=== PATIENT | male | born 1935 | race Hispanic/Latino ===

== ENCOUNTER 2017-08-31 18:16 | Observation (INO) | payer MEDICARE, MEDICAID ==
[~2017-08-31] VITALS: Ht 165.1 cm; Wt 76.9 kg
[~2017-08-31 18:16] MED LIST: ASPIRIN81 MG PO; CARVEDILOL3.125 MG PO; FUROSEMIDE20 MG PO; GLUCOPHAGE500 MG PO; HYZAAR1 TA1 PO; LEVEMIR100 UNIT/M SC; LEVOTHYROXIN50 MCG PO; LOSARTAN/HCT1 TA1 PO; METFORMIN850 MG PO; NOVOLIN 70/30 SC; NOVOLOG100 IU/1 M; PREVPAC OR; PRIMIDONE50 MG PO; ULTRAM50 M1 PO; XARELTO10 MG PO; ZOCOR20 M1 PO; ZOCOR20 MG OR
--- NOTE | 2017-08-31 18:18 | NUR ---
Pt immediately to room # 13 accompanied by family member.
[2017-08-31 18:57] LABS: HEMATOCRIT 29.2 % (39.0-50.0); HEMOGLOBIN 8.7 g/dl (14.0-18.0); IMMATURE GRANULOCYTES 0.4 % (0.0-1.0); MEAN CORPUSCULAR HGB CONC 29.8 g/L CALC (32.0-36.0); NEUT# 3.75 thou/uL (1.82-7.42); RED BLOOD COUNT 3.35 mill/uL (4.70-6.10); RED CELL DISTRI WIDTH 16.6 % (11.5-15.5)
[2017-08-31 18:59] LABS: MEAN CELL VOLUME 87.2 fL CALC (80.0-100.0)
[2017-08-31 19:05] LABS: ALBUMIN 4.3 g/dL (3.2-5.0); ALKALINE PHOSPHATASE 83 u/l (38-126); ANION GAP 20 (6-22 (CALC)); BILIRUBIN, TOTAL 0.2 mg/dL (0.0-1.4); BUN 42 mg/dL (8-23); BUN/CREATININE RATIO 35 (12-20 (CALC)); CARBON DIOXIDE 27 mmol/l (22-30); CHLORIDE 103 mmol/l (95-108); CREATININE 1.2 mg/dL (0.7-1.3); GFR 58 ML/MIN (>=60 (CALC)); GFR FOR AFR.AMER. > 60 ML/MIN (>=60 (CALC)); POTASSIUM 4.6 mmol/l (3.5-5.1); SGOT/AST 34 u/l (19-48); SGPT/ALT 35 u/l (11-66); SODIUM 145 mmol/l (137-146)
[2017-08-31 19:16] LABS: MYOGLOBIN 58 ng/mL (0 - 121)
[2017-08-31 19:28] LABS: TOTAL PROTEIN 7.4 g/dL (6.3-8.2)
[2017-08-31] MEDS ORDERED: LOSARTAN POT50 MG PO (19:47)
[2017-08-31] MEDS ORDERED: ISOSORB MONO30 MG PO (19:51)
--- NOTE | 2017-08-31 20:01 | NUR ---
PT AND FAMILY UPDATED ON KNOWN RESULTS, AWARE OF PROBABLE ADMISSION. NO DISTRESS NOTED, NO COMPLAINTS OF SOB OR CHEST TIGHTNESS.
[2017-08-31 21:05] VITALS: BP 140/70
--- NOTE | 2017-08-31 21:05 | NUR ---
RECEIVED FROM ER VIA STRETCHER ACCOMPANIED BY ER NURSE, AMBULATING TO STANDING SCALE THEN TO BED WITH STEADY GAIT. A/O X3, TUNISIAN SPEAKING ONLY, RESPIRATIONS EVEN AND UNLABORED. DENIES CHEST PAIN OR SOB AT THIS TIME. ADMITS TO SOB FOR THE PAST THREE WEEK, THAT WORSENED TODAY. O2 SAT 98%. OOB TO BSC, RESULTING IN LARGE BM, SPECIMEN OBTAINED AND SENT TO LAB FOR FOB. ORIENTED TO BED CONTROLS AND CALL LIGHT. WILL CONTINUE TO MONITOR.
--- NOTE | 2017-08-31 21:14 | NUR ---
PT TAKEN TO ICU-4 OVERFLOW, REPORT WAS TO JONO.
--- NOTE | 2017-08-31 22:00 | NUR ---
ACCUCHECK 306, NEW ORDERS RECEIVED FROM DR. FOUNTAIN FOR ACCUCHECK AC/HS WITH HIGH SS AND CONTINUE LEVEMIR 25UNIT AT HS, PT DOES AT HOME.
[2017-09-01] VITALS (7 sets, daily range): BP systolic 111–167; BP diastolic 50–71
--- NOTE | 2017-09-01 02:00 | NUR ---
RESTING WITH EYES CLOSED, RESPIRATIONS EVEN AND UNLABORED.
--- NOTE | 2017-09-01 06:10 | NUR ---
STANDING ON SIDE OF BED WITH MINIMAL ASSISTANCE, VOIDING 300ML CLEAR YELLOW URINE, THEN BACK TO BED. RESPIRATIONS EVEN AND UNLABORED. CALL LIGHT IN REACH.
--- NOTE | 2017-09-01 07:30 | NUR ---
PT ALERT AND ORIENTED RESTING IN BED, SKIN WARM AND DRY AM ASSESSMENT COMPLETED SEE INTERVENTIONS VS STABLE, ABD SOFT, DENIES N/V SKIN WARM DRY AND INTACT, IV ACCESS SALINE LOCKED, ACCU CHECK COMPLETED NO COVERAGE REQUIRED, SAFETY MEASURES REINFORCED, CALL URBANO WITHIN REACH
--- NOTE | 2017-09-01 09:15 | NUR ---
PT TOLERATED AM MEAL WELL AFTER SET UP ASSIST PROVIDED, COMFORT MEASURES PROVIDED, CALL URBANO WITHIN REACH, WILL CONTINUE TO MONITOR
--- NOTE | 2017-09-01 10:30 | NUR ---
PT OOB TO BSC WITH WPOUISE ASSIST, CONTINENT OF B&B, PROVIDED SELF JOSUE CARE, CURRENTLY BACK RESTING IN BED, WITH SPOUSE AT BEDSIDE, OFFERS NO COMPLAINTS AND CONTINUES TO DENY CHEST PAIN
--- NOTE | 2017-09-01 11:08 | NUR ---
PT CONTINENT OF 2 LARGE SOFT/LOOSE BM'S BOTH STOOLS BROWN/JARVIS/ORANGE NO S/S OF GI BLEED NOTED, ABB YEN BS ACTIVE AND PT PROVIDES OWN JOSUE CARE, REMAINS AT BEDSIDE, OTHER FAMILY MEMBERS GONE AT THIS TIME, CALL URBANO WITHIN REACH,
--- NOTE | 2017-09-01 12:05 | NUR ---
SET UP ASSIST PROVIDED FOR AFTERNOON MEAL, COVERAGE GIVEN FOR ACCU CHECK ORDERED, XIOMARA RIVERA INTO SEE PATIENT AND DISCUSS, REASON FOR ADMISSION, PLAN OF CARE ETC. WITH PATIENT AND FAMILY WITH GERMAN ENC[employer] INTREPRETER.
--- NOTE | 2017-09-01 14:15 | NUR ---
pt resting in bed, family members at bedside offers no new complaints, will continue to monitor.
--- NOTE | 2017-09-01 16:13 | NUR ---
family members at bedside, pt tolerating gastrograffin w/o incident, call velasquez within reach, will continue to monitor.
--- NOTE | 2017-09-01 16:35 | NUR ---
completed PO contrast for CT scan, pt tolerated well, family remains at bedside, will continue to monitor. Call velasquez within reach.
--- NOTE | 2017-09-01 17:24 | NUR ---
PT UP TO BSC WITH STAND BY ASSIST, REPORT CALLED TO ELIZABETH ENCINAS ON MED SURG ROOM 290 ASSIGNED
--- NOTE | 2017-09-01 18:15 | NUR ---
PT STOOD AND AMBULATED TO WHEELCHAIR, TO CT VIA WC.
--- NOTE | 2017-09-01 18:25 | NUR ---
PT TRANSFERRED TO MED SURG AFTER CT COMPLETED, PT TOLERATED WELL, ALL BELONGINGS SENT TO PATIENT NEW ROOM ON MED SURG, CALL URBANO WITHIN REACH. FAMILY AT BEDSIDE.
--- NOTE | 2017-09-01 18:30 | NUR ---
PT ARRIVED TO FLOOR VIA WC IN STABLE CONDITION ACCOMPANIED BE GANGA PETERS AND FAMILY;PT AMBULATED WITH A STEADY GAIT TO BEDSIDE;VS OBTAINED BY ERASMO ROGERS;PT ORIENTED TO ROOM AND CALL LIGHT SYSTEM;RESPIRATIONS EVEN AND UNLABORED ON RA;PT DENIES ANY CURRENT NEEDS OR DISCOMFORTS;ENCOURAGED TO CALL FOR ASSISTANCE IF NEEDED;BED IN THE LOWEST POSITION WITH CALL LIGHT IN REACH;WILL CONTINUE TO MONITOR
--- NOTE | 2017-09-01 19:07 | NUR ---
PT.IS IN RESTROOM AT THIS TIME. FAMILY AT BEDSIDE X5. BEDSIDE REPORT RECEIVED FROM DAY NURSE. WILL F/U WITH COMPLETE ASSESSMENT AND MEDICATIONS ORDERED.
--- NOTE | 2017-09-01 19:59 | NUR ---
I SPOKE W/ REGARDING POC AND RELAYED POC TO PT AND FAMILY. PT.REPORTS WANTING TO SEE OF [facility] FOR FURTHER GASTROINTESTINAL TESTING. PT.DENIES ANY FURTHER QUESTIONS AT THIS TIME. PT.DENIES ANY PAIN, BUT REPORTS THAT HE IS STILL HAVING DIAHREA FROM CONTRAST AND HE IS TRYING TO DRINK PLENTY OF WATER. LUNG SOUNDS ARE CLEAR. PT.DENIES ANY FURTHER ASSISTANCE NEEDED AT THIS TIME, LEFT SITTING ON SIDE OF THE BED W/TV AND LIGHTS ON, FAMILY AT BEDSIDE X3. PT.ENCOURAGED TO CALL IF ANY NEEDS ARISE. CALL LIGHT AT BEDSIDE.
--- NOTE | 2017-09-01 22:14 | NUR ---
PT.MEDICATED ORDERS PROVIDE AND FOR BS 160. PT.WAS ASLEEP I ENTERED THE ROOM, BUT AWOKE TO MY VOICE. LIGHTS ARE OFF AND TV ON LOW. NO S/S OF DISTRESS, NO MORE FAMILY IN ROOM. PT.DENIES ANY PAIN/N/V AT THIS TIME. WILL CONTINUE TO MONITOR. CALL LIGHT AT BEDSIDE AND PT.ENCOURAGED TO CALL FOR ASSISTANCE NEEDED
[2017-09-02 00:45] VITALS: BP 135/64
--- NOTE | 2017-09-02 01:22 | NUR ---
PT.IV FLUIDS CHANGED TO NS@125/HR AND PT.MEDICATED FOR SLEEP. DENIES ANY OTHER NEEDS AT THIS TIME. PT.HAS BEEN INSTRUCTED TO CALL FOR ASSISTANCE AMBULATING TO RESTROOM FOR SAFETY DUE TO REPORTS OF WEAKNESS. CALL LIGHT IS AT SIDE.
--- NOTE | 2017-09-02 03:15 | NUR ---
PT.APPEARS TO BE SLEEPING AT THIS TIME. LIGHTS AND TV ARE OFF. NO S/S OF DISTRESS, CALL LIGHT AT SIDE.
--- NOTE | 2017-09-02 04:47 | NUR ---
LAB IS IN TO SEE PT.AT THIS TIME. NO DISTRESS REPORTED AT THIS TIME. PT.REMINDED OF CALL LIGHT AND CALLING FOR ASSISTANCE NEEDED.
[2017-09-02 04:50] VITALS: BP 128/60
[2017-09-02 05:15] LABS: HEMOGLOBIN 8.4 g/dl (14.0-18.0); IMMATURE GRANULOCYTES 0.1 % (0.0-1.0); MEAN CELL VOLUME 86.4 fL CALC (80.0-100.0); MEAN CORPUSCULAR HGB 25.9 pG CALC (26.0-32.0); NEUT# 3.79 thou/uL (1.82-7.42); RED BLOOD COUNT 3.24 mill/uL (4.70-6.10); RED CELL DISTRI WIDTH 16.3 % (11.5-15.5)
[2017-09-02 05:31] LABS: ALBUMIN 3.6 g/dL (3.2-5.0); ALKALINE PHOSPHATASE 80 u/l (38-126); ANION GAP 16 (6-22 (CALC)); BILIRUBIN, TOTAL 0.3 mg/dL (0.0-1.4); BUN 25 mg/dL (8-23); BUN/CREATININE RATIO 30 (12-20 (CALC)); CARBON DIOXIDE 27 mmol/l (22-30); CHLORIDE 105 mmol/l (95-108); CREATININE 0.9 mg/dL (0.7-1.3); GFR > 60 ML/MIN (>=60 (CALC)); GFR FOR AFR.AMER. > 60 ML/MIN (>=60 (CALC)); POTASSIUM 4.3 mmol/l (3.5-5.1); SGOT/AST 28 u/l (19-48); SGPT/ALT 35 u/l (11-66); SODIUM 144 mmol/l (137-146); TOTAL PROTEIN 6.3 g/dL (6.3-8.2)
--- NOTE | 2017-09-02 07:25 | NUR ---
REPORT RECEIVED FROM GANGA MUSTAFA;PT APPEARS TO BE SLEEPING IN LEFT SIDE LAYING POSITION;NO S/S OF DISTRESS NOTED;RESPIRATIONS APPEAR EVEN AND UNLABORED ON RA;TELE MONITOR IN PLACE;BED IN THE LOWEST POSITION WITH CALL LIGHT IN REACH;WILL CONTINUE TO MONITOR
[2017-09-02 09:10] VITALS: BP 126/59
--- NOTE | 2017-09-02 09:15 | NUR ---
PT OOB RESTING IN RECLINER WITH FAMILY AT BEDSIDE;PT A&O X4;VS OBTAINED AND ASSESSMENT COMPLETED;RESPIRATIONS EVEN AND UNLABORED ON RA;ABDOMEN DISTENED/SOFT ON PALPATION AND ACTIVE IN ALL 4 QUADRANTS;TELE MONITOR IN PLACE;PT DENIES ANY MORE LOOSE BMS;SKIN INTACT;ALL QUESTIONS ANSWERED;ENCOURAGED TO CALL FOR ASSISTANCE IF NEEDED;CALL LIGHT IN REACH;WILL CONTINUE TO MONITOR
[2017-09-02 11:00] VITALS: BP 136/59
--- NOTE | 2017-09-02 11:06 | NUR ---
ACCU CHECK (CR HI) NURSE INFORMED.
--- NOTE | 2017-09-02 11:30 | NUR ---
PT RESTING IN RECLINER WITH FAMILY AT BEDSIDE;RESPIRATIONS EVEN AND UNLABORED ON RA;TELE MONITOR IN PLACE;IV SITE PATENT;PT DENIES ANY CURRENT NEEDS;CALL LIGHT IN REACH;WILL CONTINUE TO MONITOR
--- NOTE | 2017-09-02 12:30 | NUR ---
ALL DISCHARGE INSTRUCTIONS DISCUSSED AND PRESCRITIONS GIVEN TO THE PATIENT;DENIES ANY FURTHER NEEDS;IV SITE REMOVED WITH CATHETER INTACT;PT REFUSES WHEELCHAIR AT THIS TIME.
--- NOTE | 2017-09-02 12:40 | NUR ---
Discharge instructions given. Patient verbalizes understanding of same. Discharged in stable condition via Ambulatory to Home with family. All belongings sent with pt.
== END 2017-09-02 12:41 | disposition home or self-care (01) ==
LOC: ED 18:16 → ED-I 19:48 → ED 20:42 → ICU 20:43 → MS2 09-01 18:29
PROVIDERS: Emergency Medicine; ADMIT Internal Medicine; ATTEND Internal Medicine
DX: K56.7 Ileus, unspecified (principal); E11.9 Type 2 diabetes mellitus without complications; D50.9 Iron deficiency anemia, unspecified; I10 Essential (primary) hypertension; I25.10 Atherosclerotic heart disease of native coronary artery without angina pectoris; E78.5 Hyperlipidemia, unspecified; E03.9 Hypothyroidism, unspecified; R19.5 Other fecal abnormalities; K64.9 Unspecified hemorrhoids; Z95.1 Presence of aortocoronary bypass graft; Z95.0 Presence of cardiac pacemaker; R07.9 Chest pain, unspecified; R06.02 Shortness of breath
CPT/HCPCS: G0328

== ENCOUNTER 2019-01-04 18:36 | Emergency (ER) | payer MEDICARE, MEDICAID ==
[~2019-01-04] VITALS: Ht 165.1 cm; Wt 77.3 kg
[~2019-01-04 18:36] MED LIST changes: +ISOSORB MONO30 MG PO; +LOSARTAN POT50 MG PO
[2019-01-04 19:11] LABS: HEMATOCRIT 34.4 % (39.0-50.0); HEMOGLOBIN 10.5 g/dl (14.0-18.0); IMMATURE GRANULOCYTES 0.2 % (0.0-5.0); MEAN CELL VOLUME 92.2 fL CALC (80.0-100.0); MEAN CORPUSCULAR HGB 28.2 pG CALC (26.0-32.0); MEAN CORPUSCULAR HGB CONC 30.5 g/L CALC (32.0-36.0); NEUT# 6.15 thou/uL (1.82-7.42); RED BLOOD COUNT 3.73 mill/uL (4.70-6.10); RED CELL DISTRI WIDTH 15.1 % (11.5-15.5)
[2019-01-04 19:24] LABS: ALBUMIN 4.3 g/dL (3.2-5.0); ALKALINE PHOSPHATASE 84 u/l (38-126); ANION GAP 12 (6-22 (CALC)); BILIRUBIN, TOTAL 0.4 mg/dL (0.0-1.4); BUN 39 mg/dL (8-23); BUN/CREATININE RATIO 33 (12-20 (CALC)); CARBON DIOXIDE 30 mmol/l (22-30); CHLORIDE 101 mmol/l (95-108); CREATININE 1.2 mg/dL (0.7-1.3); GFR 58 ML/MIN (>=60 (CALC)); GFR FOR AFR.AMER. > 60 ML/MIN (>=60 (CALC)); POTASSIUM 4.6 mmol/l (3.5-5.1); SGOT/AST 26 u/l (19-48); SODIUM 138 mmol/l (137-146); TOTAL PROTEIN 7.1 g/dL (6.3-8.2)
--- NOTE | 2019-01-04 19:32 | NUR ---
BREATHING TREATMENT GIVEN BACK TO BACK WITH ONE DUONEB AND 2 UD ALBUTEROL. BREATHING TECH. FOR GOOD DEPOSITION TO THE LUNGS.
[2019-01-04] MEDS ORDERED: PREDNISONE50 MG PO (19:57)
[2019-01-04] MEDS ORDERED: VENTOLIN HFA IN (19:57)
[2019-01-04 20:25] VITALS: BP 140/61
== END 2019-01-04 20:37 | disposition home or self-care (01) ==
LOC: ED 18:36
PROVIDERS: Family Medicine
DX: J20.8 Acute bronchitis due to other specified organisms (principal); R50.9 Fever, unspecified; R09.81 Nasal congestion; R05 Cough; Z95.0 Presence of cardiac pacemaker

== ENCOUNTER 2019-02-23 15:15 | Inpatient (IN) | payer MEDICARE, MEDICAID ==
[~2019-02-23] VITALS: Ht 165.1 cm; Wt 74.0 kg
[~2019-02-23 15:15] MED LIST changes: +PREDNISONE50 MG PO; +VENTOLIN HFA IN
--- NOTE | 2019-02-23 15:35 | NUR ---
PT TO ROOM PER W/C
--- NOTE | 2019-02-23 15:45 | NUR ---
PATIENT BEING SOB FOR THE PAST FEW DAYS, HAS BEEN SLEEPING IN RECLINER AT HOME. WHEEZING NOTED TO BILATERAL LUNGS, REPORTS PRODUCTIVE COUGH AND CHEST PRESSURE. ABG AND BLOOD WORK DRAWN. RT AT BE BEDSIDE FOR NEB TREATMENT.
[2019-02-23 15:51] LABS: HEMATOCRIT 32.3 % (39.0-50.0); HEMOGLOBIN 9.8 g/dl (14.0-18.0); IMMATURE GRANULOCYTES 0.4 % (0.0-5.0); MEAN CELL VOLUME 87.3 fL CALC (80.0-100.0); MEAN CORPUSCULAR HGB 26.5 pG CALC (26.0-32.0); MEAN CORPUSCULAR HGB CONC 30.3 g/L CALC (32.0-36.0); NEUT# 6.73 thou/uL (1.82-7.42); RED BLOOD COUNT 3.7 mill/uL (4.70-6.10); RED CELL DISTRI WIDTH 16.1 % (11.5-15.5)
[2019-02-23] MEDS ORDERED: Levaquin PO (16:29)
[2019-02-23] MEDS ORDERED: LORATADINE10 M1 PO (16:30)
[2019-02-23] MEDS ORDERED: TRESIBA FL100 UNIT/M SC (16:37)
--- NOTE | 2019-02-23 16:40 | NUR ---
MEDREC COMPLETED WITH PATIENT AND FAMILY.
[2019-02-23 16:44] LABS: ALBUMIN 4.5 g/dL (3.2-5.0); ALKALINE PHOSPHATASE 92 u/l (38-126); ANION GAP 21 (6-22 (CALC)); BILIRUBIN, TOTAL 0.3 mg/dL (0.0-1.4); BUN 41 mg/dL (8-23); BUN/CREATININE RATIO 33 (12-20 (CALC)); CARBON DIOXIDE 25 mmol/l (22-30); CHLORIDE 97 mmol/l (95-108); CREATININE 1.2 mg/dL (0.7-1.3); GFR 58 ML/MIN (>=60 (CALC)); GFR FOR AFR.AMER. > 60 ML/MIN (>=60 (CALC)); SGOT/AST 34 u/l (19-48); SODIUM 138 mmol/l (137-146); TOTAL PROTEIN 7.3 g/dL (6.3-8.2)
[2019-02-23 16:55] LABS: MYOGLOBIN 98 ng/mL (0 - 121)
--- NOTE | 2019-02-23 17:00 | NUR ---
EXPIRATORY WHEEZING NOTED TO BILATERAL LUNGS, INFORMED.
--- NOTE | 2019-02-23 17:10 | NUR ---
AT BEDSIDE. ADDITIONAL BREATHING TREATMENT ORDERED.
--- NOTE | 2019-02-23 17:45 | NUR ---
ATTEMPT MADE TO CALL REPORT, SPOKE TO GANGA DOLAN. WILL CALL BACK FOR REPORT.
--- NOTE | 2019-02-23 18:10 | NUR ---
REPORT GIVEN TO HUANG STRINGER.
--- NOTE | 2019-02-23 18:19 | NUR ---
PATIENT TRANSPORTED TO [facility] VIA WHEELCHAIR WITH O2 AND TELE IN PLACE.HUANG STRINGER AT BEDSIDE. CARE RELINQUISHED. HOME MEDS SENT HOME WITH FAMILY.
--- NOTE | 2019-02-23 18:20 | NUR ---
PT ARRIVED TO MS2 VIA WHEELCHAIR ACCOMPANIED BY ER NURSE AND FAMILY. PT ALERT AND ORIENTED X3, STOOD UP WITHOUT DIFFICULTY AND AMBULATED TO BED WITH STEADY GAIT, PT SOB ON EXERTION, [address], AUDIBLE WHEEZES HEARD. ORIENTED PT TO ROOM AND CALL LIGHT, WT OBTAINED VIA BEDSCALE, VITALS OBTAINED, ACCUCHECK 373 NOTIFIED MD LAWYER CRIMINAL, ORDERS FOR PT TO TAKE HIS HOME MED TRISIBA, FAMILY TO BRING IN MEDICATION FROM HOME. CALL LIGHT IN REACH,CONTINUE TO MONITOR.
[2019-02-23 18:31] VITALS: BP 173/71
[2019-02-23 19:18] LABS: URINE BILIRUBIN - DIPSTICK NEGATIVE (NEGATIVE); URINE BLOOD DIPSTICK TRACE-INTACT (NEGATIVE); URINE COLOR YELLOW; URINE GLUCOSE - DIPSTICK >=1000 mg/dL (NEGATIVE); URINE KETONE NEGATIVE (NEGATIVE); URINE LEUK ESTERASE NEGATIVE (NEGATIVE); URINE NITRITE - DIPSTICK NEGATIVE (Negative); URINE PROTEIN - DIPSTICK 100 mg/dL (NEG-TRACE); URINE UROBILINOGEN - DIPSTICK 0.2 E.U./dL (0.2)
--- NOTE | 2019-02-23 19:20 | NUR ---
ADMISSION ASSESSMENT COMPLETED. FAMILY IN AT BEDSIDE ALL PMH OBTAINTED FROM DAUGHTERBC. UPDATED FAMILY AND PT. ON POC AND VERBALIZES UNDERSTANDING. TELEMETRY IN PLACE. EDUCATED ON INCENTIVE SPIROMETER AND PT. ABLE TO PULL 750 AT THIS TIME AND GOAL SET TO 1000.O2 INFUSING PER NC PER ORDER. ENCOURAGED TO CALL FOR ANY NEEDS. CALL LIGHT IS IN REACH.
[2019-02-23 19:29] LABS: URINE SQUAMOUS EPITHELIAL CELL FEW EPI/hpf (0-FEW)
--- NOTE | 2019-02-23 20:00 | NUR ---
SPOKE WITH DR. CHAPPELL AND NOTIFIED OF HTN AND OF ABT'S ORDERED TO START TOMORROW ALSO THAT THERE WAS NOT ANY BLOOD CULTURES ORDERED; WELL PRODUCTIVE COUGH; NEW ORDERS RECEIVED AND TO BE CARRIED OUT.
[2019-02-23 21:03] VITALS: BP 140/50; BP 140/55; BP 144/50
--- NOTE | 2019-02-23 21:03 | NUR ---
REASSESSED B/P 140/55 AND EDUCATED ON NEW MEDICATIONS; GIVEN AT THIS TIME. DENIES NEEDS. CALL LIGHT IS IN REACH. WILL CONTINUE TO MONITOR.
[2019-02-23 23:29] VITALS: BP 120/61
--- NOTE | 2019-02-23 23:30 | NUR ---
SCHED SOLU-MEDROL GIVEN. VSS. URINAL EMPTIED. DENIES NEEDS. REMAINS AT BEDSIDE STAYING THE NIGHT. CALL LIGHT IS IN REACH. WILL CONTINUE TO MONITOR.
[2019-02-24] VITALS (7 sets, daily range): BP systolic 104–166; BP diastolic 50–77
--- NOTE | 2019-02-24 03:38 | NUR ---
VS OBTAINED AND B/P ELEVATED 166/68 AND MEDICATED WITH ORDERED CLONIDINE; WILL REASSESS. PT. IS CLAMMY AND BS OBTAINED AND IS 257. URINAL EMPTIED. AT BEDSIDE. PT. DENIES NEEDS. CALL LIGHT IS IN REACH.
[2019-02-24 04:41] LABS: HEMOGLOBIN 8.9 g/dl (14.0-18.0); MEAN CELL VOLUME 87.6 fL CALC (80.0-100.0); MEAN CORPUSCULAR HGB 26.9 pG CALC (26.0-32.0); MEAN CORPUSCULAR HGB CONC 30.7 g/L CALC (32.0-36.0); RED BLOOD COUNT 3.31 mill/uL (4.70-6.10); RED CELL DISTRI WIDTH 16.1 % (11.5-15.5)
[2019-02-24 05:08] LABS: ALBUMIN 3.9 g/dL (3.2-5.0); ALKALINE PHOSPHATASE 92 u/l (38-126); ANION GAP 15 (6-22 (CALC)); BILIRUBIN, TOTAL 0.2 mg/dL (0.0-1.4); BUN 37 mg/dL (8-23); BUN/CREATININE RATIO 36 (12-20 (CALC)); CARBON DIOXIDE 26 mmol/l (22-30); CHLORIDE 102 mmol/l (95-108); GFR > 60 ML/MIN (>=60 (CALC)); GFR FOR AFR.AMER. > 60 ML/MIN (>=60 (CALC)); POTASSIUM 4.9 mmol/l (3.5-5.1); SGOT/AST 48 u/l (19-48); SODIUM 138 mmol/l (137-146); TOTAL PROTEIN 6.5 g/dL (6.3-8.2)
--- NOTE | 2019-02-24 05:15 | NUR ---
REASSESSED B/P NOW 104/50. DENIES NEEDS.SCHED MEDS GIVEN. CALL LIGHT IS IN REACH.
--- NOTE | 2019-02-24 06:30 | NUR ---
RESTING IN BED WITH EYES CLOSED; RESP. EVEN AND UNLABORED.
--- NOTE | 2019-02-24 08:16 | NUR ---
PT IS SITTING IN RECLINER . IN ROOM. ASSESSMENT DONE. TELE IN PLACE. PT DENIES PAIN. PT STATED HE GETS SOB WHEN HE MOVES. LUNGS SOUND COARSE. O2 AT 2L VIA NC. PT HAS TREMORS. PT DENIES ANY OTHER NEEDS AT THIS TIME. SAFETY PRECAUTIONS REINFORCED AND CALL LIGHT IN REACH. NOTIFIED CLAUDE YANEZ RE: PT SOB
--- NOTE | 2019-02-24 12:00 | NUR ---
PT IS SITTING IN RECLINER VISITING WITH FAMILY IN ROOM. PT DENIES ANY NEEDS AT THIS TIME. CALL LIGHT IN REACH.
--- NOTE | 2019-02-24 16:04 | NUR ---
PT IS RESTING IN BED WITH NO S/S OF DISTRESS NOTED. PT STATED THAT THE BREATHING TREATMENTS HAVE HELPED WITH HIS SOB. FAMILY IN ROOM. PT DENIES PAIN. CALL LIGHT IN REACH.
--- NOTE | 2019-02-24 16:54 | NUR ---
GANGA AT BEDSIDE.
--- NOTE | 2019-02-24 19:43 | NUR ---
PT SITTIN IN RECLINER W/FAMILY AT BEDSIDE X3. PT DENIES ANY NEEDS AT THIS TIME. REPORT RECEIVED FROM DAY NURSE WHO INTERPRETED AT THIS TIME. FAMILY SPEAKS TAJIK ALSO.
--- NOTE | 2019-02-24 20:15 | NUR ---
PT SITTING IN RECLINER W/VISITORS X3 AT BEDSIDE. WATER PROVIDED TO VISITOR AT THIS TIME. PT DENIES ANY NEEDS, ENCOURAGED TO USE CALL LIGHT IF ANY NEEDS ARISE.
--- NOTE | 2019-02-24 21:18 | NUR ---
VISITORS JUST LEFT, PT ON CELL PHONE. WILL RETURN TO MEDICATE AND ASSESS. AT BEDSIDE.
--- NOTE | 2019-02-24 21:40 | NUR ---
PT ASSISTED TO RESTROOM AND BACK TO BED. PT ASSESSED AT THIS TIME. LUNG SOUNDS ARE WHEEZING UPPER/CLEAR LOWER LOBES. ABD NON-TENDER, PT WAS ABLE TO FOLLOW DIRECTIONS AND ANSWER QUESTIONS THROUGHOUT ASSESSMENT. NEURO'S INTACT. MEDICATIONS DISCUSSED, PT ASKED QUESTIONS OF DOSAGES, BLOOD SUGAR RESULT, TYPES OF INSULIN, HE ASKED ABOUT TWO THAT HE WILL NOT BE GETTING TONIGHT, BUT TOMORROW. AFTER ALL OF THIS BEING DISCUSSED PT WAS ASKED IF HE UNDERSTOOD OR IF HE FELT HE NEEDED AN INTERPRETOR, PT DENIED NEED FOR CARBON BRUSHES ASSEMBLER AND STATED "I UNDERSTAND." PT MEDICATED AT THIS TIME. PROVIDED BEDDING NEEDED. PT ASSISTED PLACING URINAL NEXT TO BED W/IN REACH AND CALL LIGHT USAGE REVIEWED. ENCOURAGED TO CALL ANY NEEDS ARISE.
--- NOTE | 2019-02-24 23:52 | NUR ---
PT MEDICATED ORDERS PRVOIDE. PT WAS SLEEPING I ENTERED THE ROOM. ASLEEP AT BEDSIDE. PT DENIES ANY OTHER NEEDS. AIDE ENTERING ROOM TO OBTAIN V/S/
[2019-02-25 04:51] VITALS: BP 146/69
--- NOTE | 2019-02-25 05:00 | NUR ---
PT MEDICATED ORDERS PROVIDE. PT DENIES ANY OTHER NEEDS. URINAL EMPTIED OF 400CC CLEAR YELLOW URINE AT THIS TIME.
[2019-02-25 07:30] VITALS: BP 153/71
[2019-02-25 07:44] LABS: HEMATOCRIT 29.8 % (39.0-50.0); MEAN CELL VOLUME 87.9 fL CALC (80.0-100.0); MEAN CORPUSCULAR HGB 26.5 pG CALC (26.0-32.0); MEAN CORPUSCULAR HGB CONC 30.2 g/L CALC (32.0-36.0); RED BLOOD COUNT 3.39 mill/uL (4.70-6.10); RED CELL DISTRI WIDTH 16.2 % (11.5-15.5)
--- NOTE | 2019-02-25 08:00 | NUR ---
PT IS SITTING IN THE SIDE OF THE BED. ASSESSMENT DONE. TELE IN PLACE. PT IS A&O X3. 02 AT 2L VIA [place]. PT DENIES PAIN AT THIS TIME. LUNGS SOUND/WHEEZES. IN ROOM. PT HAS TREMORS. PT DENIES ANY NEEDS AT THIS TIME. CALL LIGHT IN REACH.
[2019-02-25 08:03] LABS: ANION GAP 16 (6-22 (CALC)); BUN 43 mg/dL (8-23); BUN/CREATININE RATIO 38 (12-20 (CALC)); CARBON DIOXIDE 26 mmol/l (22-30); CHLORIDE 103 mmol/l (95-108); CREATININE 1.1 mg/dL (0.7-1.3); GFR > 60 ML/MIN (>=60 (CALC)); GFR FOR AFR.AMER. > 60 ML/MIN (>=60 (CALC)); POTASSIUM 5.4 mmol/l (3.5-5.1); SODIUM 140 mmol/l (137-146)
--- NOTE | 2019-02-25 11:30 | NUR ---
PT WAS IN THE BATHROOM AND RETURN TO BED . HE STATED HE FELT SOB AND RIGHT SIDE ABD PAIN. 02 APPLIED AT 2L VIA NC. CHECK PT P-62, AND O2 100%. TELE IN PLACE. PT REFUSED PAIN MEDICATION AT THIS TIME. PT DENIES ANY OTHER NEEDS AT THIS TIME. DAUGHTER IN ROOM. CALL LIGHT IN REACH.
[2019-02-25 11:55] VITALS: BP 161/68
--- NOTE | 2019-02-25 13:00 | NUR ---
PT IS SLEEPING IN BED WITH NO S/S OF DISTRESS NOTED. DAUGHTER IN ROOM. CALL LIGHT IN REACH.
[2019-02-25 15:25] VITALS: BP 156/77
--- NOTE | 2019-02-25 16:15 | NUR ---
PT VISITING IN ROOM WITH FAMILY. PT DENIES NEEDS AT THIS TIME. CALL LIGHT IN REACH.
[2019-02-25 19:20] VITALS: BP 162/69
--- NOTE | 2019-02-25 20:43 | NUR ---
PT ACCU-CHECK REPORTED BY AIDE TO BE 416, STAT GLUCOSE WAS ORDERED AND CALL TO LAB WAS PLACED. PT REPORTS FEELING SYMPTOMATIC W/FEELING OF HOT TO COLD. DENIES ANY OTHER SYMPTOMS AT THIS TIME. FAMILY X2 AT BEDSIDE.
--- NOTE | 2019-02-25 22:00 | NUR ---
PT BS VIA ACCU-CHECK @416. STAT BLOOD GLUCOSE ORDERED AND ORDERS ADMINISTERED PER PROTOCOL AND ORDERS PROVIDE. BLOOD GLUCOSE 394 AT THIS TIME. PT WAS FEELING "HOT/COLD," BUT REPORTS FEELING BETTER AT THIS TIME.
[2019-02-25 23:48] VITALS: BP 131/54
--- NOTE | 2019-02-25 23:52 | NUR ---
PT MEDICATED ORDERS PROVIDE. LUNG SOUND EXPIRATORY WHEEZING AUSCULTATED THROUGHOUT. NO NOTED EDEMA AT THIS TIME. PT REPORTS FEELING BETTER THAN PREVIOUS NIGHT. ASLEEP AT BEDSIDE. CALL LIGHT AT SIDE AND PT ENCOURAGED TO CALL NEEDS ARISE.
--- NOTE | 2019-02-26 03:54 | NUR ---
PT SLEEPING AT THIS TIME. ASLEEP AT BEDSIDE. NO S/O DISTRESS NOTED. CALL LIGHT AT SIDE.
[2019-02-26 05:03] LABS: HEMATOCRIT 29.5 % (39.0-50.0); HEMOGLOBIN 9.1 g/dl (14.0-18.0); IMMATURE GRANULOCYTES 0.6 % (0.0-5.0); MEAN CORPUSCULAR HGB 26.8 pG CALC (26.0-32.0); MEAN CORPUSCULAR HGB CONC 30.8 g/L CALC (32.0-36.0); NEUT# 8.27 thou/uL (1.82-7.42); RED BLOOD COUNT 3.39 mill/uL (4.70-6.10); RED CELL DISTRI WIDTH 16.2 % (11.5-15.5)
[2019-02-26 05:17] VITALS: BP 162/81
[2019-02-26 05:17] LABS: ANION GAP 14 (6-22 (CALC)); BUN 42 mg/dL (8-23); BUN/CREATININE RATIO 35 (12-20 (CALC)); CARBON DIOXIDE 28 mmol/l (22-30); CHLORIDE 103 mmol/l (95-108); CREATININE 1.2 mg/dL (0.7-1.3); GFR 58 ML/MIN (>=60 (CALC)); GFR FOR AFR.AMER. > 60 ML/MIN (>=60 (CALC)); MAGNESIUM 2.3 mg/dL (1.6-2.3); POTASSIUM 5.1 mmol/l (3.5-5.1); SODIUM 139 mmol/l (137-146)
--- NOTE | 2019-02-26 05:55 | NUR ---
PT MEDICATED ORDERS PROVIDE AND FOR ELEVATED SBP 162/82. 400CC OF CLEAR YELLOW URINE EMPTIED FROM URINAL. PT ASSISTED BACK INTO THE BED/REPOSITIONED. PT D.WEIGHT ASSESSED AT THIS TIME. CALL LIGHT AT SIDE AND PT ENCOURAGED TO CALL NEEDS ARISE.
--- NOTE | 2019-02-26 07:10 | NUR ---
REPORT RECEIVED FROM GANGA MUSTAFA. PT RESTING IN BED. NO S/S OF DISTRESS AT TIS TIME. SAFETY PRECAUTIONS IN PLACE. WILL CONTINUE TO MONITOR.
[2019-02-26 08:44] VITALS: BP 155/74
--- NOTE | 2019-02-26 08:45 | NUR ---
PT RESTING IN BED. RESPIRATIONS EVEN AND UNLABIORED ON O2 @ 2L VIA NC. WHEEZES NOTED THROUGH OUT LUNGS. PEDAL PULSES STRONG. PT DENIES ANY PAIN OR DISCOMFORT AT THIS TIME. TELE IN PLACE. #20 LAC, PATENT AND APPEARS HEALTHY. CALL URBANO WITHIN REACH. WILL CONTINUE TO MONITOR.
--- NOTE | 2019-02-26 10:51 | NUR ---
MD AT BEDSIDE DISCUSSING PLAN OF CARE
[2019-02-26 11:14] VITALS: BP 135/58
--- NOTE | 2019-02-26 12:20 | NUR ---
NEW ORDERS RECEIVED TO REMOVE 02 AND MONITOR PT O2 SATS. O2 REMOVED PT SAT ON RA 98%. WILL CONTINUE TO MONITOR.
[2019-02-26 15:50] VITALS: BP 143/63
--- NOTE | 2019-02-26 17:00 | NUR ---
PT RESTING IN BED. RESPIRATIONS EVEN AND UNLABORED ON RA. NO S/S OF DISTRESS AT THIS TIME. WILL CONTINUE TO MONITOR.
[2019-02-26 19:00] VITALS: BP 132/59
--- NOTE | 2019-02-26 19:30 | NUR ---
ASSESSMENT COMPLETED. IV SITE PATENT AND SL. DENIES NEEDS/PAIN. UPDATED ON POC. AT BEDSIDE. CALL LIGHT IS IN REACH. ENCOURAGED TO USE INCENTIVE SPIROMETER.
--- NOTE | 2019-02-26 20:52 | NUR ---
SCHED MEDS GIVEN. DENIES NEEDS/PAIN. PO FLUIDS OFFERED AND SNACK PROVIDED. FAMILY AT BEDSIDE. CALL LIGHT IS IN REACH.
[2019-02-26 23:22] VITALS: BP 146/73
--- NOTE | 2019-02-26 23:24 | NUR ---
SCHED MEDS GIVEN. DENIES NEEDS/ PAIN. VSS;URINAL EMPTIED. CALL LIGHT IS IN REACH. AT BEDSIDE. WILL CONTINUE TO MONITOR.
--- NOTE | 2019-02-27 01:55 | NUR ---
PT. SITTING UP ON THE SIDE OF THE BED WITH NO DISTRESS NOTED; C/O DRY COUGH, GIVEN WARM TEA AT THIS TIME. REMAINS AT BEDSIDE. CALL LIGHT IS IN REACH.
[2019-02-27 04:17] VITALS: BP 150/68
--- NOTE | 2019-02-27 04:19 | NUR ---
RESTING IN BED WITH NO DISTRESS NOTED; VSS; AT BEDSIDE. DENIES NEEDS. CALL LIGHT IS IN REACH.
[2019-02-27 04:58] LABS: HEMOGLOBIN 9.3 g/dl (14.0-18.0); IMMATURE GRANULOCYTES 1.1 % (0.0-5.0); MEAN CELL VOLUME 86.2 fL CALC (80.0-100.0); MEAN CORPUSCULAR HGB 26.7 pG CALC (26.0-32.0); NEUT# 7.69 thou/uL (1.82-7.42); RED BLOOD COUNT 3.48 mill/uL (4.70-6.10); RED CELL DISTRI WIDTH 16.2 % (11.5-15.5)
[2019-02-27 05:21] LABS: ANION GAP 16 (6-22 (CALC)); BUN 37 mg/dL (8-23); BUN/CREATININE RATIO 32 (12-20 (CALC)); CARBON DIOXIDE 27 mmol/l (22-30); CHLORIDE 102 mmol/l (95-108); CREATININE 1.1 mg/dL (0.7-1.3); GFR > 60 ML/MIN (>=60 (CALC)); GFR FOR AFR.AMER. > 60 ML/MIN (>=60 (CALC)); POTASSIUM 4.9 mmol/l (3.5-5.1); SODIUM 139 mmol/l (137-146)
--- NOTE | 2019-02-27 05:36 | NUR ---
PT. DENIES NEEDS/PAIN. SPO2 WNL ON RA THROUGHOUT THE NIGHT. SCHED MEDS GIVEN AND COFFEE PROVIDED. CALL LIGHT IS IN REACH. WILL CONTINUE TO MONITOR.
--- NOTE | 2019-02-27 06:45 | NUR ---
REPORT RECEIVED. PT RESTING IN BED. RESP ARE EVEN AND UNLABORED. WILL CONTINUE TO MONITOR,.
[2019-02-27 08:30] VITALS: BP 159/78
--- NOTE | 2019-02-27 08:30 | NUR ---
PT RESTING IN BED AWAKE FAMILY AT BEDSIDE. PT IS ALERT AND ORIENTED X3. SHIFT ASSESSMENT COMPLETED AT THIS TIME. IV PATENT X1. CALL LIGHT IN REACH. WILL CONTINUE TO MONITOR.
--- NOTE | 2019-02-27 10:00 | NUR ---
PT AMBULATING IN HALLWAY WITH DAUGHTER
[2019-02-27 11:00] VITALS: BP 128/57
--- NOTE | 2019-02-27 11:14 | NUR ---
DR PATEL AND JANE RIVEAR AT BEDSIDE AT THIS TIME.
--- NOTE | 2019-02-27 11:40 | NUR ---
RADIOLOGY AT BEDSIDE FOR PORTABL CHEST XRAY
--- NOTE | 2019-02-27 14:30 | NUR ---
PT REPORTS FEELING BETTER AT THIS TIME
[2019-02-27 15:52] VITALS: BP 99/61
--- NOTE | 2019-02-27 16:00 | NUR ---
PT RESTING IN BED FAMILY AT BEDSIDE. RESP ARE EVEN AND UNLABORED. NO DISTRESS NOTED. CALL LIGHT IN REACH. WILL CONTINUE TO MONITOR
--- NOTE | 2019-02-27 17:15 | NUR ---
DR KILGORE AT BEDSIDE AT THIS TIME
[2019-02-27 19:05] VITALS: BP 150/73
--- NOTE | 2019-02-27 19:17 | NUR ---
ASSESSMENT COMPLETED. IV SITE PATENT AND SL; NO DISTRESS NOTED;DENIES NEEDS/PAIN. UPDATED ON POC. VERBALIZES UNDERSTANDING. PT. REMAINS ON RA. ENCOURAGED TO CALL FOR ANY NEEDS. REMAINS AT BEDSIDE. CALL LIGHT IS IN REACH.
--- NOTE | 2019-02-27 21:36 | NUR ---
SCHED MEDS GIVEN AND SNACK PROVIDED. DENIES NEEDS/PAIN. FAMILY AT BEDSIDE. CALL LIGHT IS IN REACH. WILL CONTINUE TO MONITOR. CALL LIGHT IS IN REACH.
[2019-02-27 23:40] VITALS: BP 160/77
--- NOTE | 2019-02-28 | NUR ---
RESTING IN BED WITH EYES CLOSED; RESP. EVEN AND UNLABORED. CALL LIGHT IS IN REACH.
--- NOTE | 2019-02-28 01:30 | NUR ---
PT. RESTING IN BED WITH EYES CLOSED; RESP. EVEN AND UNLABORED. CALL LIGHT IS IN REACH.
--- NOTE | 2019-02-28 02:27 | NUR ---
REPORT RECEIVED FROM GANGA RAMACHANDRAN. PT RESTING IN BED, NO S/S OF DISTRESS AT THIS TIME SAFETY PRECAUTIONS IN PLACE. WILL CONTINUE TO MONITOR.
[2019-02-28 04:41] VITALS: BP 185/77
--- NOTE | 2019-02-28 05:00 | NUR ---
PT RESTING IN BED. RESPIRATIONS EVEN AND UNLABORED ON RA. TELE IN PLACE. NO S/S OF DISTRESS AT THIS TIME. CALL URBANO WITHIN REACH. WILL CONTINUE TO MONITOR.
[2019-02-28 05:40] LABS: HEMATOCRIT 32.9 % (39.0-50.0); IMMATURE GRANULOCYTES 1.1 % (0.0-5.0); MEAN CELL VOLUME 86.4 fL CALC (80.0-100.0); MEAN CORPUSCULAR HGB 26.2 pG CALC (26.0-32.0); MEAN CORPUSCULAR HGB CONC 30.4 g/L CALC (32.0-36.0); NEUT# 6.82 thou/uL (1.82-7.42); RED BLOOD COUNT 3.81 mill/uL (4.70-6.10); RED CELL DISTRI WIDTH 15.9 % (11.5-15.5)
[2019-02-28 05:49] LABS: ANION GAP 16 (6-22 (CALC)); BUN 39 mg/dL (8-23); BUN/CREATININE RATIO 36 (12-20 (CALC)); CARBON DIOXIDE 29 mmol/l (22-30); CHLORIDE 99 mmol/l (95-108); CREATININE 1.1 mg/dL (0.7-1.3); GFR > 60 ML/MIN (>=60 (CALC)); GFR FOR AFR.AMER. > 60 ML/MIN (>=60 (CALC)); MAGNESIUM 1.9 mg/dL (1.6-2.3); POTASSIUM 4.8 mmol/l (3.5-5.1); SODIUM 139 mmol/l (137-146)
[2019-02-28 06:33] VITALS: BP 153/75
[2019-02-28 07:00] VITALS: BP 181/83
--- NOTE | 2019-02-28 07:00 | NUR ---
PT RESTING IN BED WITH EYES CLOSED. AROUSES TO VERBAL STIMULI. RESP ARE EVEN AND UNLABORED. NO DISTRESS NOTED. SHIFT ASSESSMENT COMPLETED AT THIS TIME. IV PATENT X1. CALL LIGHT IN REACH WILL CONTINUE TO MONITOR
--- NOTE | 2019-02-28 09:15 | NUR ---
DR KILGORE AT BEDSIDE AT THIS TIME
[2019-02-28] MEDS ORDERED: PREDNISONE10 MG PO (09:21)
[2019-02-28] MEDS ORDERED: PANTOPRAZOLE SO40 M1 PO (09:21)
[2019-02-28] MEDS ORDERED: IPRATROPIU0.5 MG/3 M NEB (09:21)
[2019-02-28 09:22] VITALS: BP 172/67
[2019-02-28] MEDS ORDERED: LEVAQUIN750 MG PO (09:29)
--- NOTE | 2019-02-28 11:35 | NUR ---
SPEECH THERAPY AT BEDSIDE FOR EVAL AT THIS TIME
--- NOTE | 2019-02-28 12:09 | NUR ---
Pt is an 83 y.o. male referred for a Clinical Bedside Swallow Evaluation d/t concerns with aspiration. Pt w/PMHX of Parkinson's, COPD, Afib, DM2, Congestive Heart Failure, and recent admission dx of PNA w/LLL infiltration. Pt presents with WFL Oral Mech Exam; pt able to safely consume regular texture solids w/o overt clinical s/s of aspiration/penetration, but presents with intermittent coughing/belching and throat-clear with thin liquids via straw. D/t the progression of Parkinson's Dx, pt must use a straw in order to be able to be independent in feeding. Pt was able to safely consume NTL via straw w/o overt clinical s/s of aspiration/penetration during today's evaluation. PRINTING MANAGER provided education to family (2 daughters and present) regarding thickening, the purpose of utilizing thickening agent, and all safe swallow strategies to reduce risk of continued/future aspiration/infection, as pt does not currently exhibit volitional cough d/t respiratory issues. Family and pt verbally expressed understanding and agreement with PRINTING MANAGER recommendation(s); PRINTING MANAGER recommendations also communicated to RN attending. DIET: Regular solids, [place] Thick Liquids (STRAWS=OK!) [facility] Score: 24 at this time.
--- NOTE | 2019-02-28 12:20 | NUR ---
IV site discontinued, cath intact. No edema , no redness, voices no discomfort.
--- NOTE | 2019-02-28 12:25 | NUR ---
DISCHARGE INSTRUCTIONS REVIEWED WITH PATIENT AND FAMILY. PATIENT REQUESTED FAMILY INTERPRET. ALL VERBALIZED UNDERSTANDING.
--- NOTE | 2019-02-28 12:40 | NUR ---
Discharge instructions given. Patient verbalizes understanding of same. Discharged in stable condition via Wheelchair to Home with family. All belongings sent with pt.
== END 2019-02-28 12:40 | disposition home or self-care (01) | DRG 190 ==
LOC: ED 15:15 → ED-I 17:14 → ED 17:25 → MS2 17:26
PROVIDERS: Emergency Medicine; Nurse Practitioner Family; ADMIT Internal Medicine; ATTEND Internal Medicine
DX: J43.9 Emphysema, unspecified (principal); J18.9 Pneumonia, unspecified organism; I50.22 Chronic systolic (congestive) heart failure; I16.0 Hypertensive urgency; I48.0 Paroxysmal atrial fibrillation; I11.0 Hypertensive heart disease with heart failure; I25.118 Atherosclerotic heart disease of native coronary artery with other forms of angina pectoris; G20 Parkinson's disease; I25.5 Ischemic cardiomyopathy; E78.5 Hyperlipidemia, unspecified; G47.33 Obstructive sleep apnea (adult) (pediatric); E11.51 Type 2 diabetes mellitus with diabetic peripheral angiopathy without gangrene; E03.9 Hypothyroidism, unspecified; Z79.01 Long term (current) use of anticoagulants; Z91.19 Patient's noncompliance with other medical treatment and regimen; Z79.4 Long term (current) use of insulin; Z87.891 Personal history of nicotine dependence; Z95.1 Presence of aortocoronary bypass graft; Z95.0 Presence of cardiac pacemaker
CPT/HCPCS: G0378; S0164

== ENCOUNTER 2019-07-23 | Emergency (ER) | payer MEDICARE, MEDICAID ==
[~2019-07-23] MED LIST changes: +IPRATROPIU0.5 MG/3 M NEB; +LEVAQUIN750 MG PO; +LORATADINE10 M1 PO; +Levaquin PO; +PANTOPRAZOLE SO40 M1 PO; +PREDNISONE10 MG PO; +TRESIBA FL100 UNIT/M SC
[2019-07-23] MEDS ORDERED: DOXYCYCL HYC100 MG PO (12:50)
[2019-07-23] MEDS ORDERED: KAPSPARGO SPRIN25 MG PO (12:51)
[2019-07-23] MEDS ORDERED: BENZONATATE200 MG PO (12:52)
[2019-07-23] MEDS ORDERED: VITAMIN C500 M1 PO (12:52)
[2019-07-23 13:24] LABS: HEMATOCRIT 34.4 % (39.0-50.0); HEMOGLOBIN 10.7 g/dl (14.0-18.0); IMMATURE GRANULOCYTES 0.4 % (0.0-5.0); MEAN CELL VOLUME 89.8 fL CALC (80.0-100.0); MEAN CORPUSCULAR HGB 27.9 pG CALC (26.0-32.0); MEAN CORPUSCULAR HGB CONC 31.1 g/dL CAL (32.0-36.0); NEUT# 10.07 thou/uL (1.82-7.42); RED BLOOD COUNT 3.83 mill/uL (4.70-6.10); RED CELL DISTRI WIDTH 24.1 % (11.5-15.5)
[2019-07-23 13:36] LABS: ALBUMIN 4.5 g/dL (3.2-5.0); ALKALINE PHOSPHATASE 87 u/l (38-126); ANION GAP 16 (6-22 (CALC)); BILIRUBIN, TOTAL 0.4 mg/dL (0.0-1.4); BUN 41 mg/dL (8-23); BUN/CREATININE RATIO 34 (12-20 (CALC)); CARBON DIOXIDE 27 mmol/l (22-30); CHLORIDE 100 mmol/l (95-108); CREATININE 1.2 mg/dL (0.7-1.3); GFR 58 ML/MIN (>=60 (CALC)); GFR FOR AFR.AMER. > 60 ML/MIN (>=60 (CALC)); MAGNESIUM 2.1 mg/dL (1.6-2.3); POTASSIUM 4.4 mmol/l (3.5-5.1); SGOT/AST 34 u/l (19-48); SODIUM 139 mmol/l (137-146); TOTAL PROTEIN 7.6 g/dL (6.3-8.2)
[2019-07-23 13:47] LABS: MYOGLOBIN 169 ng/mL (0 - 121)
[2019-07-23 14:06] LABS: TSH, 3RD GENERATION 3.02 uIU/mL (0.47 - 4.68)
[2019-07-23] MEDS ORDERED: PREDNISONE50 MG PO (14:23)
== END 2019-07-23 14:43 | disposition home or self-care (01) ==
PROVIDERS: Family Medicine
DX: J44.1 Chronic obstructive pulmonary disease with (acute) exacerbation (principal); I11.0 Hypertensive heart disease with heart failure; I50.9 Heart failure, unspecified; E11.9 Type 2 diabetes mellitus without complications; I25.10 Atherosclerotic heart disease of native coronary artery without angina pectoris; G20 Parkinson's disease; Z95.1 Presence of aortocoronary bypass graft; Z95.0 Presence of cardiac pacemaker; Z79.4 Long term (current) use of insulin

== ENCOUNTER 2019-07-28 | Emergency (ER) | payer MEDICARE, MEDICAID ==
[~2019-07-28] MED LIST changes: +BENZONATATE200 MG PO; +DOXYCYCL HYC100 MG PO; +KAPSPARGO SPRIN25 MG PO; +VITAMIN C500 M1 PO
[2019-07-28 07:40] LABS: HEMATOCRIT 34.5 % (39.0-50.0); HEMOGLOBIN 10.8 g/dl (14.0-18.0); IMMATURE GRANULOCYTES 0.6 % (0.0-5.0); MEAN CELL VOLUME 88.9 fL CALC (80.0-100.0); MEAN CORPUSCULAR HGB 27.8 pG CALC (26.0-32.0); MEAN CORPUSCULAR HGB CONC 31.3 g/dL CAL (32.0-36.0); NEUT# 12.69 thou/uL (1.82-7.42); RED BLOOD COUNT 3.88 mill/uL (4.70-6.10); RED CELL DISTRI WIDTH 23.4 % (11.5-15.5)
[2019-07-28 07:51] LABS: ANION GAP 13 (6-22 (CALC)); BUN 53 mg/dL (8-23); BUN/CREATININE RATIO 41 (12-20 (CALC)); CARBON DIOXIDE 26 mmol/l (22-30); CHLORIDE 102 mmol/l (95-108); CREATININE 1.3 mg/dL (0.7-1.3); GFR 53 ML/MIN (>=60 (CALC)); GFR FOR AFR.AMER. > 60 ML/MIN (>=60 (CALC)); POTASSIUM 4.2 mmol/l (3.5-5.1); SODIUM 137 mmol/l (137-146)
[2019-07-28] MEDS ORDERED: LEVAQUIN750 M1 PO (08:22)
== END 2019-07-28 09:05 | disposition home or self-care (01) ==
PROVIDERS: Family Medicine
DX: J18.9 Pneumonia, unspecified organism (principal); E11.9 Type 2 diabetes mellitus without complications; I11.0 Hypertensive heart disease with heart failure; I50.9 Heart failure, unspecified; I25.10 Atherosclerotic heart disease of native coronary artery without angina pectoris; G20 Parkinson's disease; Z95.1 Presence of aortocoronary bypass graft; Z95.0 Presence of cardiac pacemaker; Z79.4 Long term (current) use of insulin; Z20.828 Contact with and (suspected) exposure to other viral communicable diseases

== ENCOUNTER 2020-08-08 14:03 | Observation (INO) | payer MEDICARE, MEDICAID ==
[~2020-08-08] VITALS: Ht 165.1 cm; Wt 82.0 kg
[~2020-08-08 14:03] MED LIST changes: +LEVAQUIN750 M1 PO
--- NOTE | 2020-08-08 14:20 | NUR ---
PT WALKED BACK TO ROOM. PT PLACED ON MONITOR.
[2020-08-08 14:53] LABS: HEMOGLOBIN 13.4 g/dl (14.0-18.0); IMMATURE GRANULOCYTES 0.3 % (0.0-5.0); MEAN CELL VOLUME 97.1 fL CALC (80.0-100.0); MEAN CORPUSCULAR HGB 29.6 pG CALC (26.0-32.0); MEAN CORPUSCULAR HGB CONC 30.5 g/dL CAL (32.0-36.0); NEUT# 5.4 thou/uL (1.82-7.42); RED BLOOD COUNT 4.53 mill/uL (4.70-6.10); RED CELL DISTRI WIDTH 17.3 % (11.5-15.5)
[2020-08-08 15:05] LABS: ALBUMIN 4.6 g/dL (3.2-5.0); ALKALINE PHOSPHATASE 80 u/l (38-126); ANION GAP 10 (6-22 (CALC)); BILIRUBIN, TOTAL 0.5 mg/dL (0.0-1.4); BUN 39 mg/dL (8-23); BUN/CREATININE RATIO 30 (12-20 (CALC)); CARBON DIOXIDE 38 mmol/l (22-30); CHLORIDE 99 mmol/l (95-108); CREATININE 1.3 mg/dL (0.7-1.3); GFR 53 ML/MIN (>=60 (CALC)); GFR FOR AFR.AMER. > 60 ML/MIN (>=60 (CALC)); POTASSIUM 4.8 mmol/l (3.5-5.1); SGOT/AST 38 u/l (19-48); SODIUM 142 mmol/l (137-146); TOTAL PROTEIN 7.7 g/dL (6.3-8.2)
[2020-08-08 15:08] LABS: PROTHROMBIN TIME 10.6 SECONDS (9.0-12.5)
[2020-08-08 15:17] LABS: MYOGLOBIN 116 ng/mL (0 - 121)
--- NOTE | 2020-08-08 15:20 | NUR ---
Reassessment of patient completed. No distress noted.
[2020-08-08] MEDS ORDERED: EQL IRON SUPPL325 M1 (15:44)
[2020-08-08] MEDS ORDERED: REPAGLINIDE2 MG (15:48)
[2020-08-08] MEDS ORDERED: SINGULAIR10 MG PO (15:49)
--- NOTE | 2020-08-08 16:41 | NUR ---
Reassessment of patient completed. No distress noted.
[2020-08-08 18:44] VITALS: BP 170/75
--- NOTE | 2020-08-08 18:53 | NUR ---
REPORT RECEIVED FROM GEOVANNI IN ED, PT ARRIVED ON UNIT @ 1847 TRANSPORTED VIA STRETCHER BY ED STAFF. ALERT AND ORIENTED, DENIES PAIN, ASSISTED TO BED, GAIT UNSTEADY, MUCH TREMORS,, IV CATHETER TO RAC FLUSHED, ORIENTED TO ROOM AND CALL URBANO, NEXT SHIFT TO CONTINUE TO ASSESS AND MONITOR.
[2020-08-08 20:00] VITALS: BP 153/63
--- NOTE | 2020-08-08 20:00 | NUR ---
PHYSICAL ASSESMENT COMPLETE. PT CURRENTLY DENIES PAIN OR DISCOMFORT. SCHEDULED MEDICATIONS AND PRN MEDICATION ADMINISTERED, SEE E-MAR. PT DENIES ANY NEEDS AT THIS TIME. PLAN OF CARE REVIEWED, PT DENIES QUESTIONS, VERBALIZES UNDERSTANDING. ITEMS WITHIN REACH, BED LOCKED IN LOW POSITION W/ BEDRAILS UP X2. CALL URBANO WITHIN REACH, AGREES TO CALL PRN.
--- NOTE | 2020-08-08 23:04 | NUR ---
CONTACTED PTS DAUGHTER CONCERNING IMAGING RESULTS. CALL WAS NOT ANSWERED AND VOICEMAIL BOX WAS FULL. [phone]
[2020-08-09] VITALS: BP 137/69
--- NOTE | 2020-08-09 00:04 | NUR ---
PT LAYING IN BED WITH EYES CLOSED, APPEARS TO BE SLEEPING, APPEARS COMFORTABLE AND IN NO DISTRESS. RESPIRATIONS REGULAR AND UNLABORED. ITEMS REMAIN WITHIN REACH, CALL URBANO REMAINS WITHIN REACH. BED REMAINS LOCKED AND IN LOW POSITION WITH BEDRAILS UP X2. WILL CONTINUE TO MONITOR.
[2020-08-09 04:00] VITALS: BP 127/68
--- NOTE | 2020-08-09 04:11 | NUR ---
PT RESTING IN BED, NO SIGNS OF DISTRESS NOTED, RESP EVEN AND UNLABORED. PT VOICES NO NEEDS OR COMPLAINTS AT THIS TIME. CALL LIGHT IN REACH, CONTINUE TO MONITOR.
[2020-08-09 05:34] LABS: HEMATOCRIT 42.3 % (39.0-50.0); HEMOGLOBIN 13.3 g/dl (14.0-18.0); IMMATURE GRANULOCYTES 0.4 % (0.0-5.0); MEAN CELL VOLUME 94.8 fL CALC (80.0-100.0); MEAN CORPUSCULAR HGB 29.8 pG CALC (26.0-32.0); MEAN CORPUSCULAR HGB CONC 31.4 g/dL CAL (32.0-36.0); NEUT# 4.05 thou/uL (1.82-7.42); RED BLOOD COUNT 4.46 mill/uL (4.70-6.10); RED CELL DISTRI WIDTH 17.4 % (11.5-15.5)
[2020-08-09 05:55] LABS: ALKALINE PHOSPHATASE 81 u/l (38-126); ANION GAP 6 (6-22 (CALC)); BILIRUBIN, TOTAL 0.5 mg/dL (0.0-1.4); BUN 41 mg/dL (8-23); BUN/CREATININE RATIO 36 (12-20 (CALC)); CALCULATED LDLCHOLESTEROL 91 mg/dL (62-129 (CALC)); CARBON DIOXIDE 32 mmol/l (22-30); CHLORIDE 98 mmol/l (95-108); CHOLESTEROL HDL RATIO 2.8 (<4.4 (CALC)); CREATININE 1.1 mg/dL (0.7-1.3); GFR > 60 ML/MIN (>=60 (CALC)); GFR FOR AFR.AMER. > 60 ML/MIN (>=60 (CALC)); HDL CHOLESTEROL 61 mg/dL (>=40); SGOT/AST 32 u/l (19-48); TOTAL CHOLESTEROL 171 mg/dl (0-199); TOTAL PROTEIN 6.5 g/dL (6.3-8.2); TOTAL TRIGLYCERIDES 94 mg/dl (30-149); VLDL CHOLESTROL 19 mg/dl (0-38 (CALC))
[2020-08-09 05:57] LABS: SODIUM 132 mmol/l (137-146)
[2020-08-09 07:35] VITALS: BP 145/59
--- NOTE | 2020-08-09 08:00 | NUR ---
ASSESSMENT IS COMPLETED; iV SITE IS FREE FROM REDNESS OR EDEMA NOTED. HR IS REG,PULSES ARE STRONG X4.ABD IS SOFT WITH ACTIVE BS.BREATH SOUNDS ARE CLEAR,BILATERALLY,NO C/O SOB.TELE MONITOR IN PLACE.PT HAS BEEN SITTING IN THE CHAIR.
[2020-08-09 10:28] VITALS: BP 169/73
--- NOTE | 2020-08-09 11:04 | NUR ---
VERIFIED WITH DR ELLIS THAT PATIENT CAN HAVE IV DOSE OF FURUSEMIDE EVEN THOUGH HE RECEIVED AN ORAL DOSE AT 9AM TODAY. HE SAYS ITS OK IT IS A ONE TIME DOSE.
[2020-08-09 11:52] LABS: URINE BILIRUBIN - DIPSTICK NEGATIVE (NEGATIVE); URINE BLOOD DIPSTICK NEGATIVE (NEGATIVE); URINE COLOR YELLOW; URINE GLUCOSE - DIPSTICK >=1000 mg/dL (NEGATIVE); URINE KETONE NEGATIVE (NEGATIVE); URINE LEUK ESTERASE NEGATIVE (NEGATIVE); URINE NITRITE - DIPSTICK NEGATIVE (Negative); URINE PROTEIN - DIPSTICK NEGATIVE (NEG-TRACE); URINE UROBILINOGEN - DIPSTICK 0.2 E.U./dL (0.2)
[2020-08-09] MEDS ORDERED: SENNA LAXATIVE8.6 MG PO (12:15)
--- NOTE | 2020-08-09 12:40 | NUR ---
PT IS RELAXING IN THE CHAIR NO DISTRESS NOTED. SPOKE WITH HIS DAUGHTER [id number] INQUIRED ABOUT A STOOL SOFTENER FOR THE CONSTIPATION. INFORMED LANE MO.
--- NOTE | 2020-08-09 13:30 | NUR ---
IV SITE DISCONTINUED CATHETER INTACT.NO REDNESS OR EDEMA. DISCHARGE INSTRUCTIONS GIVEN AND INTERPRETED BY TERESA ZIMMERMAN. Discharge instructions given. Patient verbalizes understanding of same. Discharged in stable condition via Wheelchair to Home with family. All belongings sent with pt.
--- NOTE | 2020-08-09 13:35 | NUR ---
Discharge instructions given. Patient verbalizes understanding of same. Discharged in stable condition via Wheelchair to Home with family. All belongings sent with pt.
== END 2020-08-09 14:08 | disposition home or self-care (01) ==
LOC: ED 14:03 → ED-I 15:50 → ED 17:01 → MS2 17:02
PROVIDERS: Emergency Medicine; Nurse Practitioner; ADMIT Internal Medicine; ATTEND Internal Medicine
DX: R07.9 Chest pain, unspecified (principal); I11.0 Hypertensive heart disease with heart failure; I50.22 Chronic systolic (congestive) heart failure; E11.9 Type 2 diabetes mellitus without complications; J43.9 Emphysema, unspecified; I25.118 Atherosclerotic heart disease of native coronary artery with other forms of angina pectoris; I25.5 Ischemic cardiomyopathy; E11.51 Type 2 diabetes mellitus with diabetic peripheral angiopathy without gangrene; E78.5 Hyperlipidemia, unspecified; K59.00 Constipation, unspecified; G20 Parkinson's disease; J45.909 Unspecified asthma, uncomplicated; G25.0 Essential tremor; G47.33 Obstructive sleep apnea (adult) (pediatric); E03.9 Hypothyroidism, unspecified; Z87.891 Personal history of nicotine dependence; Z79.4 Long term (current) use of insulin; Z95.1 Presence of aortocoronary bypass graft; Z95.0 Presence of cardiac pacemaker; Z20.822 Contact with and (suspected) exposure to COVID-19
CPT/HCPCS: G0378

== ENCOUNTER 2021-09-24 15:11 | Emergency (ER) | payer MEDICARE, MEDICAID ==
[~2021-09-24] VITALS: Ht 165.1 cm; Wt 81.8 kg
[~2021-09-24 15:11] MED LIST changes: +EQL IRON SUPPL325 M1; +REPAGLINIDE2 MG; +SENNA LAXATIVE8.6 MG PO; +SINGULAIR10 MG PO
[2021-09-24 16:00] VITALS: BP 131/60
[2021-09-24 16:31] VITALS: BP 133/50
[2021-09-24 17:01] VITALS: BP 140/67
[2021-09-24 17:09] VITALS: BP 140/67
== END 2021-09-24 17:14 | disposition home or self-care (01) ==
LOC: ED 15:11
DX: S80.01XA Contusion of right knee, initial encounter (principal); I11.0 Hypertensive heart disease with heart failure; I50.9 Heart failure, unspecified; E11.9 Type 2 diabetes mellitus without complications; I25.10 Atherosclerotic heart disease of native coronary artery without angina pectoris; G20 Parkinson's disease; J45.909 Unspecified asthma, uncomplicated; W18.39XA Other fall on same level, initial encounter; Y93.F9 Activity, other caregiving; Y92.009 Unspecified place in unspecified non-institutional (private) residence as the place of occurrence of the external cause; Z79.4 Long term (current) use of insulin; Z95.0 Presence of cardiac pacemaker; Z95.1 Presence of aortocoronary bypass graft

== ENCOUNTER 2022-03-23 11:21 | Emergency (ER) | payer MEDICARE, MEDICAID ==
[~2022-03-23] VITALS: Ht 165.1 cm; Wt 71.6 kg
[2022-03-23] VITALS (8 sets, daily range): BP systolic 111–143; BP diastolic 39–59
[~2022-03-23 11:21] MED LIST changes: -TRESIBA FL100 UNIT/M SC; +TRESIBA FL200 UNIT/M SC
[2022-03-23 12:01] LABS: HEMATOCRIT 35.8 % (39.0-50.0); HEMOGLOBIN 11.5 g/dl (14.0-18.0); IMMATURE GRANULOCYTES 0.2 % (0.0-5.0); MEAN CELL VOLUME 89.1 fL CALC (80.0-100.0); MEAN CORPUSCULAR HGB 28.6 pG CALC (26.0-32.0); MEAN CORPUSCULAR HGB CONC 32.1 g/dL CAL (32.0-36.0); NEUT# 6.48 thou/uL (1.82-7.42); RED BLOOD COUNT 4.02 mill/uL (4.70-6.10); RED CELL DISTRI WIDTH 16.9 % (11.5-15.5)
[2022-03-23 12:11] LABS: ALBUMIN 4.1 g/dL (3.2-5.0); CREATININE 1.5 mg/dL (0.7-1.3); POTASSIUM 4.2 mmol/l (3.5-5.1)
[2022-03-23 12:27] LABS: BILIRUBIN, TOTAL 0.2 mg/dL (0.0-1.4)
[2022-03-23] MEDS ORDERED: JARDIANCE25 MG PO (12:51)
[2022-03-23] MEDS ORDERED: INSULIN AS100 UNIT/2 SC (12:53)
[2022-03-23] MEDS ORDERED: PRIMIDONE50 MG PO ×2 (12:55→12:56)
[2022-03-23] MEDS ORDERED: ALBUTEROL108 MCG/AC IN (12:58)
[2022-03-23] MEDS ORDERED: TOPROL XL25 M1 PO (12:58)
[2022-03-23] MEDS ORDERED: ASPIRINCHW 81MG PO (12:59)
[2022-03-23] MEDS ORDERED: HYZAAR1 TA1 PO (13:00)
[2022-03-23] MEDS ORDERED: LASIX 40 MG TAB40 MG PO (13:01)
[2022-03-23] MEDS ORDERED: CO-Q 101 CAP PO (13:02)
[2022-03-23] MEDS ORDERED: BREO ELLIPTA 101 INH IN (13:02)
[2022-03-23] MEDS ORDERED: MAGNESIUM CITR PO (13:03)
[2022-03-23] MEDS ORDERED: POTASSIUM CHLO10 MEQ PO (13:03)
[2022-03-23] MEDS ORDERED: GABAPENTIN100 MG PO (13:05)
[2022-03-23] MEDS ORDERED: TRAMADOL HCL50 MG PO (13:06)
[2022-03-23] MEDS ORDERED: SURFAK240 MG/CAP PO (13:06)
[2022-03-23] MEDS ORDERED: ATORVASTATIN CA40 MG PO (13:08)
[2022-03-23] MEDS ORDERED: OZEMPIC2 MG/1.5 M SC (13:10)
[2022-03-23] MEDS ORDERED: PLAVIX75 MG PO (13:10)
[2022-03-23 13:50] LABS: URINE BILIRUBIN - DIPSTICK NEGATIVE (NEGATIVE); URINE BLOOD DIPSTICK NEGATIVE (NEGATIVE); URINE COLOR YELLOW; URINE GLUCOSE - DIPSTICK >=1000 mg/dL (NEGATIVE); URINE KETONE NEGATIVE (NEGATIVE); URINE LEUK ESTERASE NEGATIVE (NEGATIVE); URINE NITRITE - DIPSTICK NEGATIVE (Negative); URINE PH 5.5 (4.5-8.0); URINE PROTEIN - DIPSTICK NEGATIVE (NEG-TRACE); URINE UROBILINOGEN - DIPSTICK 0.2 E.U./dL (0.2)
== END 2022-03-23 14:21 | disposition home or self-care (01) ==
LOC: ED 11:21
PROVIDERS: Family Medicine
DX: R53.1 Weakness (principal); I11.0 Hypertensive heart disease with heart failure; I50.9 Heart failure, unspecified; E11.9 Type 2 diabetes mellitus without complications; E03.9 Hypothyroidism, unspecified; G20 Parkinson's disease; J45.909 Unspecified asthma, uncomplicated; I25.10 Atherosclerotic heart disease of native coronary artery without angina pectoris; Z95.1 Presence of aortocoronary bypass graft; Z95.0 Presence of cardiac pacemaker; Z79.4 Long term (current) use of insulin

== ENCOUNTER 2022-08-04 12:01 | Observation (INO) | payer MEDICARE, MEDICAID ==
[2022-08-04] VITALS (17 sets, daily range): BP systolic 101–154; BP diastolic 44–61
[~2022-08-04] VITALS: Ht 162.6 cm; Wt 80.9 kg
[~2022-08-04 12:01] MED LIST changes: +ALBUTEROL108 MCG/AC IN; +ASPIRINCHW 81MG PO; +ATORVASTATIN CA40 MG PO; +BREO ELLIPTA 101 INH IN; +CO-Q 101 CAP PO; +GABAPENTIN100 MG PO; +INSULIN AS100 UNIT/2 SC; +JARDIANCE25 MG PO; +LASIX 40 MG TAB40 MG PO; +MAGNESIUM CITR PO; +OZEMPIC2 MG/1.5 M SC; +PLAVIX75 MG PO; +POTASSIUM CHLO10 MEQ PO; +SURFAK240 MG/CAP PO; +TOPROL XL25 M1 PO; +TRAMADOL HCL50 MG PO
--- NOTE | 2022-08-04 12:11 | NUR ---
PT WHEELED TO ROOM
--- NOTE | 2022-08-04 12:14 | NUR ---
PT VIA W/C TO ROOM 1 FOR TRIAGE WIHT FAMILY.
[2022-08-04 13:11] LABS: BASO% 0.8 % (0-3); EOS% 2.1 % (0-8); IMMATURE GRANULOCYTES 0.4 % (0.0-5.0); LYMPH% 11.6 % (15-41); MEAN CORPUSCULAR HGB 18.9 pG CALC (26.0-32.0); MEAN CORPUSCULAR HGB CONC 26.6 g/dL CAL (32.0-36.0); NEUT# 7.39 thou/uL (1.82-7.42); NEUT% 76.1 % (42-76); RED BLOOD COUNT 3.44 mill/uL (4.70-6.10); RED CELL DISTRI WIDTH 20.8 % (11.5-15.5)
[2022-08-04 13:16] LABS: HEMATOCRIT 24.4 % (39.0-50.0); HEMOGLOBIN 6.5 g/dl (14.0-18.0); MEAN CELL VOLUME 70.9 fL CALC (80.0-100.0)
[2022-08-04 13:20] LABS: TOTAL PROTEIN 6.4 g/dL (6.3-8.2)
[2022-08-04 13:32] LABS: BILIRUBIN, TOTAL 0.3 mg/dL (0.2-1.3); POTASSIUM 5.9 mmol/l (3.5-5.1)
--- NOTE | 2022-08-04 13:32 | NUR ---
LAB HERE FOR BLOOD BANK BLOOD DRAW
--- NOTE | 2022-08-04 14:33 | NUR ---
IN ROOM TO SPEAK TO PT
--- NOTE | 2022-08-04 17:43 | NUR ---
Admission Note Report Given to: GANGA BARCLAY Transported by: Wheelchair X Stretcher Transported with: X Nurse Transporter X Patent IV O2 X Machine Operator Hop Picker Location: ICU X MS2 TO ROOM 267
--- NOTE | 2022-08-04 19:56 | NUR ---
Received report from off going nurse. Head to toe assessment completed. Patient currently receiving PRBC. Denies painor discomfort. Lung sounds clear. Daughter at bedisde and asked to be able to spend the night with patient. Upper Inspector gave permission for daughter to stay. Patient is Sami-speaking only and daughter to provide translation as needed. Saftey measures in place. Call light within reach.
[2022-08-04 20:44] LABS: HEMATOCRIT 29.1 % (39.0-50.0); HEMOGLOBIN 8.1 g/dl (14.0-18.0)
--- NOTE | 2022-08-04 23:50 | NUR ---
Patient restig quietly in bed with eyes closed. Daughter at bedside. Call light within reach.
[2022-08-05] VITALS (10 sets, daily range): BP systolic 90–146; BP diastolic 40–51
[2022-08-05 00:31] LABS: HEMATOCRIT 28.8 % (39.0-50.0)
[2022-08-05 01:28] LABS: URINE BILIRUBIN - DIPSTICK NEGATIVE (NEGATIVE); URINE BLOOD DIPSTICK NEGATIVE (NEGATIVE); URINE COLOR YELLOW; URINE GLUCOSE - DIPSTICK 500 mg/dL (NEGATIVE); URINE KETONE NEGATIVE (NEGATIVE); URINE LEUK ESTERASE NEGATIVE (NEGATIVE); URINE PROTEIN - DIPSTICK NEGATIVE (NEG-TRACE); URINE SPECIFIC GRAVITY <=1.005; URINE UROBILINOGEN - DIPSTICK 0.2 E.U./dL (0.2)
[2022-08-05 01:49] LABS: URINE NITRITE - DIPSTICK NEGATIVE (Negative)
--- NOTE | 2022-08-05 03:06 | NUR ---
Patient medicated. Went back to sleep. Daughter remains at bediside. No concerns voiced at this time.
[2022-08-05 06:35] LABS: ALBUMIN 3.6 g/dL (3.2-5.0); BILIRUBIN, TOTAL 0.3 mg/dL (0.2-1.3); CREATININE 1.5 mg/dL (0.7-1.3); MAGNESIUM 2.8 mg/dL (1.6-2.3); TOTAL PROTEIN 5.8 g/dL (6.3-8.2)
[2022-08-05 06:45] LABS: HEMATOCRIT 27.4 % (39.0-50.0); HEMOGLOBIN 7.7 g/dl (14.0-18.0); MEAN CELL VOLUME 71.4 fL CALC (80.0-100.0); MEAN CORPUSCULAR HGB 20.1 pG CALC (26.0-32.0); MEAN CORPUSCULAR HGB CONC 28.1 g/dL CAL (32.0-36.0); RED BLOOD COUNT 3.84 mill/uL (4.70-6.10); RED CELL DISTRI WIDTH 21.5 % (11.5-15.5)
[2022-08-05 06:54] LABS: POTASSIUM 4.3 mmol/l (3.5-5.1)
--- NOTE | 2022-08-05 06:57 | NUR ---
RN INFORMED OF CRITICAL GLUCOSE RESULTING IN 50
--- NOTE | 2022-08-05 07:07 | NUR ---
This nurse made aware that patient's blood glucose was 50. Patient is symptomatic and stated that he doesn't feel well. Apple juice and jello provided. Patient repositioned. Call light within reach.
--- NOTE | 2022-08-05 07:54 | NUR ---
PT RESTING IN SEMI FOWLERS POSITION. WHILE SHIFT REPORT WAS BEING GIVEN LAB RESULT 50 CL FOR GLUCOSE. IMMEDIATE ACTION TO PROVIDE PT WITH APPLE JUICE X2 AND JELLO PT NOW UP TO 95.PROVIDER INFORMED. PT REQUEST JUICE AGAIN PT FAMILY INFORMED OF PT DIET. PT DENIES ADDITIONALNEEDS AT THE TIME ALL SAFETY PRECAUTIONS IN PLACE. FAMILY AT BEDSIDE NOW.
--- NOTE | 2022-08-05 11:40 | NUR ---
PT FAMILY AT BED SIDE LAB CALLED FOR ADD ON TEST LABS.
[2022-08-05 12:11] LABS: HEMATOCRIT 26.6 % (39.0-50.0); HEMOGLOBIN 7.5 g/dl (14.0-18.0)
--- NOTE | 2022-08-05 16:12 | NUR ---
PT UP TO BSC WITH HELP OF DAUGHTER AT BEDSIDE . BOTH DENY ADDITIONAL NEEDS AT THE TIME ALL SAFETY PRECAUTIONS IN PLACE.
[2022-08-05 17:55] LABS: HEMATOCRIT 28.8 % (39.0-50.0)
--- NOTE | 2022-08-05 19:58 | NUR ---
RECEIVED PATIENT IN BED .RESTING NO S/S OF DISTRESS NOTED. DENIES ANY PAIN OR DISCOMFORT. CALL LIGHT IN REACH.
[2022-08-06 00:33] VITALS: BP 146/48
[2022-08-06 00:44] LABS: HEMATOCRIT 28.2 % (39.0-50.0); HEMOGLOBIN 7.8 g/dl (14.0-18.0)
--- NOTE | 2022-08-06 03:56 | NUR ---
PATIENT SLEEPING. SON AT BEDSIDE. DENIES ANY PAIN OR DISCOMFORT. CALL LIGHT IN REACH.
[2022-08-06 04:00] VITALS: BP 150/60
[2022-08-06 04:23] VITALS: BP 150/60
[2022-08-06 06:31] LABS: HEMATOCRIT 28.2 % (39.0-50.0); HEMOGLOBIN 7.8 g/dl (14.0-18.0); MEAN CELL VOLUME 73.2 fL CALC (80.0-100.0); MEAN CORPUSCULAR HGB 20.3 pG CALC (26.0-32.0); MEAN CORPUSCULAR HGB CONC 27.7 g/dL CAL (32.0-36.0); RED BLOOD COUNT 3.85 mill/uL (4.70-6.10)
[2022-08-06 06:34] VITALS: BP 127/37
[2022-08-06 06:34] LABS: ALBUMIN 3.7 g/dL (3.2-5.0); BILIRUBIN, TOTAL 0.2 mg/dL (0.2-1.3); CREATININE 1.5 mg/dL (0.7-1.3); MAGNESIUM 2.9 mg/dL (1.6-2.3); POTASSIUM 4.5 mmol/l (3.5-5.1)
--- NOTE | 2022-08-06 06:57 | NUR ---
BLOOD SUGAR VIA LAB 58. NOTIFIED DR. KILGORE. ORANGE JUICE GIVEN AND SNACK. REPEAT BLOOD SUGAR 67.
--- NOTE | 2022-08-06 07:03 | NUR ---
REPEAT BLOOD SUGAR 105. CONT. TO MONITOR
--- NOTE | 2022-08-06 08:00 | NUR ---
PT IN BED WITH HOB UP AWAKE, ALERT AND ORIENTED. PT HAS NO C/O PAIN AT THIS TIME. PT HAS TELE ON WITH ALL LEADS REGULATOR OPERATOR. IV TO RAC CLEAN AND INTACT WITH NS @ 10ML/HR. PT HAS URINAL AT BEDSIDE WITH CLEAR, YELLOW URINE. PT HAS CALL LIGHT WITHIN REACH AND ALL SAFETY MEASURES IN PLACE.
[2022-08-06 09:15] VITALS: BP 149/59
[2022-08-06 10:57] VITALS: BP 151/64
--- NOTE | 2022-08-06 12:00 | NUR ---
PT SITTING UP IN CHAIR AT BEDSIDE ALERT AND ORIENTED, FAMILY IN RM. PT HAS NO C/O PAIN AT THIS ITME. NO CHANGE IN STATUS AT THIS ITME.
--- NOTE | 2022-08-06 14:26 | NUR ---
Discharge instructions given. Patient verbalizes understanding of same. Discharged in stable condition via Wheelchair to Home with family. All belongings sent with pt.
== END 2022-08-06 14:26 | disposition home or self-care (01) ==
LOC: ED 12:01 → ED-I 14:20 → ED 14:45 → MS2 14:46
PROVIDERS: Family Medicine; ADMIT Internal Medicine; ATTEND Internal Medicine
PROC: 30233N1 Transfusion of Nonautologous Red Blood Cells into Peripheral Vein, Percutaneous Approach (ICD-10-PCS; principal; 2022-08-04)
DX: D64.9 Anemia, unspecified (principal); N17.9 Acute kidney failure, unspecified; E87.5 Hyperkalemia; K92.1 Melena; I13.0 Hypertensive heart and chronic kidney disease with heart failure and stage 1 through stage 4 chronic kidney disease, or unspecified chronic kidney disease; I50.9 Heart failure, unspecified; E11.22 Type 2 diabetes mellitus with diabetic chronic kidney disease; N18.9 Chronic kidney disease, unspecified; E11.51 Type 2 diabetes mellitus with diabetic peripheral angiopathy without gangrene; I48.20 Chronic atrial fibrillation, unspecified; E11.649 Type 2 diabetes mellitus with hypoglycemia without coma; J43.9 Emphysema, unspecified; E03.9 Hypothyroidism, unspecified; E78.5 Hyperlipidemia, unspecified; G20 Parkinson's disease; G47.33 Obstructive sleep apnea (adult) (pediatric); I25.5 Ischemic cardiomyopathy; I25.118 Atherosclerotic heart disease of native coronary artery with other forms of angina pectoris; Z87.891 Personal history of nicotine dependence; Z79.02 Long term (current) use of antithrombotics/antiplatelets; Z79.82 Long term (current) use of aspirin; Z95.0 Presence of cardiac pacemaker; Z95.1 Presence of aortocoronary bypass graft; Z95.818 Presence of other cardiac implants and grafts; Z89.512 Acquired absence of left leg below knee; Z79.4 Long term (current) use of insulin; Z20.822 Contact with and (suspected) exposure to COVID-19
CPT/HCPCS: J1756; P9016; S0164

== ENCOUNTER 2022-10-15 11:11 | Emergency (ER) | payer MEDICARE, MEDICAID ==
[~2022-10-15] VITALS: Ht 162.6 cm; Wt 81.0 kg
[2022-10-15 11:21] VITALS: BP 111/46
[2022-10-15 11:30] VITALS: BP 98/40
[2022-10-15 11:45] VITALS: BP 104/45
[2022-10-15 12:00] VITALS: BP 99/41
[2022-10-15 12:01] LABS: BASO% 0.6 % (0-3); EOS% 4.3 % (0-8); HEMATOCRIT 32.4 % (39.0-50.0); HEMOGLOBIN 9.3 g/dl (14.0-18.0); IMMATURE GRANULOCYTES 0.2 % (0.0-5.0); LYMPH% 22.8 % (15-41); MEAN CELL VOLUME 85.9 fL CALC (80.0-100.0); MEAN CORPUSCULAR HGB 24.7 pG CALC (26.0-32.0); MEAN CORPUSCULAR HGB CONC 28.7 g/dL CAL (32.0-36.0); MONO% 9.9 % (2-13); NEUT# 3.91 thou/uL (1.82-7.42); NEUT% 62.2 % (42-76); RED BLOOD COUNT 3.77 mill/uL (4.70-6.10); RED CELL DISTRI WIDTH 19.6 % (11.5-15.5)
[2022-10-15 12:09] VITALS: BP 99/41
== END 2022-10-15 12:18 | disposition home or self-care (01) ==
LOC: ED 11:11
PROVIDERS: Family Medicine
DX: R04.0 Epistaxis (principal); I11.0 Hypertensive heart disease with heart failure; I50.9 Heart failure, unspecified; E11.9 Type 2 diabetes mellitus without complications; I25.10 Atherosclerotic heart disease of native coronary artery without angina pectoris; J45.909 Unspecified asthma, uncomplicated; G20 Parkinson's disease; Z95.1 Presence of aortocoronary bypass graft; Z95.0 Presence of cardiac pacemaker; Z79.4 Long term (current) use of insulin

== ENCOUNTER 2022-11-11 20:49 | Emergency (ER) | payer MEDICARE, MEDICAID ==
[~2022-11-11] VITALS: Ht 162.6 cm; Wt 79.5 kg
[2022-11-11] VITALS (7 sets, daily range): BP systolic 113–128; BP diastolic 38–54
[2022-11-11 21:57] LABS: BASO% 0.5 % (0-3); EOS% 2.7 % (0-8); HEMATOCRIT 33.3 % (39.0-50.0); HEMOGLOBIN 9.3 g/dl (14.0-18.0); IMMATURE GRANULOCYTES 0.3 % (0.0-5.0); LYMPH% 14.2 % (15-41); MEAN CELL VOLUME 83.7 fL CALC (80.0-100.0); MEAN CORPUSCULAR HGB 23.4 pG CALC (26.0-32.0); MEAN CORPUSCULAR HGB CONC 27.9 g/dL CAL (32.0-36.0); MONO% 11.4 % (2-13); NEUT# 7.09 thou/uL (1.82-7.42); NEUT% 70.9 % (42-76); RED BLOOD COUNT 3.98 mill/uL (4.70-6.10); RED CELL DISTRI WIDTH 17.5 % (11.5-15.5)
[2022-11-11 22:10] LABS: ALBUMIN 3.9 g/dL (3.2-5.0); CREATININE 2.1 mg/dL (0.7-1.3); POTASSIUM 4.3 mmol/l (3.5-5.1); TOTAL PROTEIN 6.7 g/dL (6.3-8.2)
[2022-11-11 22:12] LABS: BILIRUBIN, TOTAL 0.3 mg/dL (0.2-1.3)
[2022-11-11] MEDS ORDERED: MEDDOSEPAK PO (23:26)
[2022-11-11] MEDS ORDERED: ALBUTEROL SUL0.083 % NEB (23:26)
[2022-11-11 23:27] LABS: URINE BILIRUBIN - DIPSTICK NEGATIVE (NEGATIVE); URINE BLOOD DIPSTICK NEGATIVE (NEGATIVE); URINE COLOR YELLOW; URINE GLUCOSE - DIPSTICK >=1000 mg/dL (NEGATIVE); URINE KETONE NEGATIVE (NEGATIVE); URINE LEUK ESTERASE NEGATIVE (NEGATIVE); URINE PROTEIN - DIPSTICK NEGATIVE (NEG-TRACE); URINE SPECIFIC GRAVITY <=1.005; URINE UROBILINOGEN - DIPSTICK 0.2 E.U./dL (0.2)
[2022-11-11 23:31] LABS: URINE NITRITE - DIPSTICK NEGATIVE (Negative)
== END 2022-11-11 23:45 | disposition home or self-care (01) ==
LOC: ED 20:49
PROVIDERS: Emergency Medicine
DX: J06.9 Acute upper respiratory infection, unspecified (principal); I11.0 Hypertensive heart disease with heart failure; I50.9 Heart failure, unspecified; E11.9 Type 2 diabetes mellitus without complications; J44.9 Chronic obstructive pulmonary disease, unspecified; I25.10 Atherosclerotic heart disease of native coronary artery without angina pectoris; G20 Parkinson's disease; Z95.1 Presence of aortocoronary bypass graft; Z95.0 Presence of cardiac pacemaker; Z79.4 Long term (current) use of insulin; Z89.512 Acquired absence of left leg below knee; Z20.822 Contact with and (suspected) exposure to COVID-19

== ENCOUNTER 2023-05-28 12:02 | Observation (INO) | payer MEDICARE, MEDICAID ==
[2023-05-28] VITALS (16 sets, daily range): BP systolic 119–172; BP diastolic 46–77
[~2023-05-28] VITALS: Ht 162.6 cm; Wt 74.8 kg
[~2023-05-28 12:02] MED LIST changes: +ALBUTEROL SUL0.083 % NEB; +MEDDOSEPAK PO
--- NOTE | 2023-05-28 12:04 | NUR ---
PT TO ROOM VIA WC WITH DAUGHTER AT BEDSIDE
[2023-05-28 12:55] LABS: BASO% 0.6 % (0-3); EOS% 0.8 % (0-8); HEMATOCRIT 29.8 % (39.0-50.0); HEMOGLOBIN 8.5 g/dl (14.0-18.0); IMMATURE GRANULOCYTES 0.5 % (0.0-5.0); LYMPH% 16.8 % (15-41); MEAN CELL VOLUME 84.9 fL CALC (80.0-100.0); MEAN CORPUSCULAR HGB 24.2 pG CALC (26.0-32.0); MEAN CORPUSCULAR HGB CONC 28.5 g/dL CAL (32.0-36.0); MONO% 14.7 % (2-13); NEUT# 5.18 thou/uL (1.82-7.42); NEUT% 66.6 % (42-76); RED BLOOD COUNT 3.51 mill/uL (4.70-6.10); RED CELL DISTRI WIDTH 20.6 % (11.5-15.5)
--- NOTE | 2023-05-28 13:00 | NUR ---
DAUGHTER RAN HOME TO COLLECT A LIST OF HIS HOME MEDS, PT RESTING IN BED, CALL LIGHT AND URINAL WITHIN REACH
--- NOTE | 2023-05-28 13:17 | NUR ---
550 ML OF YELLOW URINE EMPTIED FROM URINAL
[2023-05-28] MEDS ORDERED: ALLOPURINOL100 MG PO (13:19)
[2023-05-28] MEDS ORDERED: FERROUS SULFAT325 MG PO (13:20)
[2023-05-28] MEDS ORDERED: PANTOPRAZOLE SO40 M1 PO (13:20)
[2023-05-28] MEDS ORDERED: TRAZODONE100 MG PO (13:22)
[2023-05-28] MEDS ORDERED: [UNRECOGNIZED DRUG - OTHER] (13:25)
[2023-05-28 13:37] LABS: INTERNATIONAL NORMALIZED RATIO 1.2 RATIO (0.7-1.3); PROTHROMBIN TIME 11.6 SECONDS (9.0-12.5)
[2023-05-28 13:41] LABS: ALBUMIN 4.2 g/dL (3.2-5.0); CREATININE 1.5 mg/dL (0.7-1.3); TOTAL PROTEIN 6.9 g/dL (6.3-8.2)
[2023-05-28 13:46] LABS: URINE BILIRUBIN - DIPSTICK Negative (NEGATIVE); URINE BLOOD DIPSTICK Trace-lysed (NEGATIVE); URINE GLUCOSE - DIPSTICK 500 mg/dL (NEGATIVE); URINE KETONE Negative (NEGATIVE); URINE LEUK ESTERASE Negative (NEGATIVE); URINE NITRITE - DIPSTICK Negative (Negative); URINE PROTEIN - DIPSTICK 30 mg/dL (NEG-TRACE); URINE UROBILINOGEN - DIPSTICK 0.2 E.U./dL (0.2)
[2023-05-28 13:48] LABS: URINE COLOR Yellow; URINE EPITHELIAL CELLS FEW EPI/hpf (0-FEW); URINE MUCUS FEW hpf (NONE-FEW); URINE RBC 0-2 RBC/hpf (0-5)
[2023-05-28 13:51] LABS: BILIRUBIN, TOTAL 0.5 mg/dL (0.2-1.3); POTASSIUM 5.7 mmol/l (3.5-5.1)
[2023-05-28] MEDS ORDERED: AMOX/K CLAV875 M1 PO (14:21)
[2023-05-28] MEDS ORDERED: BENZONATATE150 MG PO (14:22)
--- NOTE | 2023-05-28 14:30 | NUR ---
550 ml of yellow urine emptied from urinal, pt resting in bed, watching tv
--- NOTE | 2023-05-28 15:29 | NUR ---
pt resting in bed, assisted pt to reposition, daughter at bedside, call light and urinal within reach
[2023-05-28 15:38] LABS: CREATININE 1.6 mg/dL (0.7-1.3)
[2023-05-28 15:47] LABS: POTASSIUM 5.7 mmol/l (3.5-5.1)
--- NOTE | 2023-05-28 16:14 | NUR ---
550 ML OF YELLOW URINE EMPTIED FROM URINAL. CONDOM CATHETER NOW IN PLACE, IT IS HARD FOR PT TO USE URINAL
--- NOTE | 2023-05-28 17:19 | NUR ---
PT RESTING IN BED, CONTACTED [facility] FOR A TRAY.
--- NOTE | 2023-05-28 18:25 | NUR ---
PT TO ROOM 280 VIA STRETCHER ON TELE 15, [place] AT BEDSIDE. DAUGHTER AT BEDSIDE FOR TRANSPORT
--- NOTE | 2023-05-28 20:00 | NUR ---
PATIENT RESTING IN BED AT THIS TIME-AWAKE ALERT AND ORIENTED TO PERSON AND PLACE. PATIENT IS MOSTLY [place] SPEAKING BUT DOES UNDERSTAND SOME MALAY. CONDOM CATH IN PLACE FOR ACCURATE I&O. TELE MONITOR IN PLACE-LAST READING WAS PACED 74. IVF PATENT AND INFUSING VIA RAC SITE AT 50CC/HR. PATIENT WITH OCC PRODUCTIVE COUGH WITH WHITE SECREATIONS. 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 ABD IS SOFT WITH ACTIVE BS. LAST BM WAS TODAY 05/28. ORIENTED TO ROOM AND SURROUNDINGS. INSTRUCTED ON USE OF NURSE CALL LIGHT SYSTEM AND TV REMOTE. SAFETY PRECAUTIONS REINFORCED. BED ALARM IN PLACE FOR PATIENT SAFETY. CALL LIGHT IN REACH. WILL CONT TO MONITOR.
--- NOTE | 2023-05-28 22:00 | NUR ---
PATIENT RESTING IN BED-LASIX 40MG IVP GIVEN ORDERED VIA [facility] IV SITE. IVF PATENT AND INFUSING ORDERED. TELE MONITOR IN PLACE. BED ALARM IN PLACE FOR PATENT SAFETY. CONT TO REPLACE MALE PUREWICK TO MAINTAIN STRICT I&O. PATIENT DOES HAVE EPISODES OF INCONT SECONDARY TO NOT BEING ABLE TO MAINTAIN EITHER CONDOM CATH OR MALE PUREWICK. BED ALARM IN PLACE FOR PATIENT SAFETY. CALL LIGHT IN REACH. WILL CONT TO MONITOR.
[2023-05-28 23:53] LABS: BILIRUBIN, TOTAL 0.5 mg/dL (0.2-1.3); CREATININE 1.6 mg/dL (0.7-1.3)
[2023-05-29] LABS: POTASSIUM 4.7 mmol/l (3.5-5.1)
--- NOTE | 2023-05-29 | NUR ---
PATIENT IS RESTLESS AT TIMES AND HAVING DIFFICULTY KEEPING CONDOM CATH OR MALE PUREWICK IN PLACE FOR STRICT I&O. WILL CONT TO REPLACE. TELE MONITOR IN PLACE. IVF NS PATENT AND INFUSING ORDERED. RECENT K+ IMPROVED TO 4.7. KIDNEY FUNC REMAINS ELEVATED. BED ALARM INPLACE FOR PATIENT SAFETY. CALL LIGHT IN REACH. WILL CONT TO MONITOR.
[2023-05-29 00:12] LABS: ALBUMIN 4.1 g/dL (3.2-5.0); TOTAL PROTEIN 6.5 g/dL (6.3-8.2)
[2023-05-29 04:02] VITALS: BP 140/50
--- NOTE | 2023-05-29 04:46 | NUR ---
PATIENT RESTING IN BED AT TH IS TIME-EYES ARE CLOSED AND RESPS ARE EVEN AND UNLABORED. TELE MONITOR IN PLACE-LAST READING PACED AT 60. IVF PATENT AND INFUSING VIA RAC SITE AT 100CC/HR. HAVE BEEN HAVING DIFFICULTY WITH OBTAINING ACCURATE I&O-ATTEMPTED TO U SE MALE PUREWICK AND ALSO CONDOM CATH BUT DUE TO MALE ANATOMY WAS DIFFICULT TO STAY IN PLACE. DID VOID 700 IN URINAL WITH ASSIST AND HAD 400CC OUT IN PUREWICK BEFORE BEING DISLODGED. BED ALARM IN PLACE FOR PATIENT SAFETY. CALL LIGHT IN REACH. WILL CONT TO MONITOR.
[2023-05-29 06:36] VITALS: BP 136/40
[2023-05-29 06:39] LABS: HEMATOCRIT 26.9 % (39.0-50.0); HEMOGLOBIN 8.1 g/dl (14.0-18.0); MEAN CORPUSCULAR HGB 24.7 pG CALC (26.0-32.0); MEAN CORPUSCULAR HGB CONC 30.1 g/dL CAL (32.0-36.0); RED BLOOD COUNT 3.28 mill/uL (4.70-6.10); RED CELL DISTRI WIDTH 20.8 % (11.5-15.5)
[2023-05-29 07:01] LABS: ALBUMIN 3.9 g/dL (3.2-5.0); BILIRUBIN, TOTAL 0.5 mg/dL (0.2-1.3); CREATININE 1.5 mg/dL (0.7-1.3); MAGNESIUM 2.5 mg/dL (1.6-2.3); POTASSIUM 4.3 mmol/l (3.5-5.1); TOTAL PROTEIN 6.1 g/dL (6.3-8.2)
--- NOTE | 2023-05-29 07:07 | NUR ---
PT RESTING IN LOW FOWLERS POSITION . A/O RESPIRATIONS ON ROOM AIR. HEART MONITOR NOTED. IV SITE NOTED. PT DENIES ADDITIONAL NEEDS AT THE TIME ALL SAFETY PRECAUTIONS IN PLACE WITH CALL LIGHT IN REACH.
--- NOTE | 2023-05-29 07:23 | NUR ---
LAB CALLED FLOOR FOR CRITICAL OF PROCALCITONIN IS 0.394. DR. LOPEZ AWARE . NO NEW ORDERS AT THE TIME.
[2023-05-29] MEDS ORDERED: BREO ELLIPTA1 INH (08:35)
[2023-05-29] MEDS ORDERED: COLACE100 MG PO (08:36)
[2023-05-29 10:25] VITALS: BP 139/49
--- NOTE | 2023-05-29 12:16 | NUR ---
PT BS HIGH PROVIDER NOTIFIED PROVIDER STATED WILL PLACE ON SLIDING SCALE. NO NEW ORDERS AT THE TIME.
--- NOTE | 2023-05-29 14:18 | NUR ---
PT TRANSPORTED TO CT WITH WHEEL CHAIR/STAFF.
--- NOTE | 2023-05-29 14:25 | NUR ---
PT ARRIVED TO NE SETTLED IN BED. NO ADDITIONAL NEEDS REQUESTED ALL SAFETY PRECAUTIONS IN PLACE WITH CALL LIGHT IN REACH.
[2023-05-29 15:45] VITALS: BP 140/44
--- NOTE | 2023-05-29 16:06 | NUR ---
PT RECIEVING IRON AT THE TIME PT HAD BM AND VOIDED TODAY ASSISSTED TO BSC. PT BKA ASSIST X2 .
--- NOTE | 2023-05-29 16:54 | NUR ---
PT BS 494 . EMAR STATES GIVE 6UNITS AND NOTIFY MD. MD NOTIFIED STATED GIVE 6 UNITS NOW DIRECTED. STATED PT IS ON STERIODS WILL MODIFY PT MEDICATIONS FOR BS. PT AWARE OF CHANGES PT STATED UNDERSTANDING.
[2023-05-29 19:09] VITALS: BP 156/50
--- NOTE | 2023-05-29 20:00 | NUR ---
PT RESTING NO DISTRESS NOTED ON EXAM. ASSESSMENT DONE. PT ON RA WITH A PRODUCTIVE COUGH. CALL LIGHT WITHIN REACH. PLAN OF CARE ONGOING.
--- NOTE | 2023-05-30 | NUR ---
PT HELP TO BSC WITH MINIMAL ASSISTANCE THAN HELPED BACK TO BED. CALL LIGHT WITHIN REACH. PLAN OF CARE ONGOING.
[2023-05-30 00:03] VITALS: BP 147/46
--- NOTE | 2023-05-30 04:00 | NUR ---
PT RESTING NO DISTRESS NOTED ON EXAM. CALL LIGHT WITHIN REACH. PLAN OF CARE ONGOING.
[2023-05-30 04:22] VITALS: BP 127/32
[2023-05-30 07:12] VITALS: BP 161/55
--- NOTE | 2023-05-30 07:25 | NUR ---
PT RESTING IN LOW FOWLERS POSITION. PT A/OX3 PT HEART MONITOR NOTED. RESPIRATIONS ON ROOM AIR. IV SITE NOTED. PT DENIES ADDITIONAL NEEDS AT THE TIME ALL SAFETY PRECAUTIONS IN PLACE WITH CALL LIGHT IN REACH.
[2023-05-30 07:58] LABS: HEMATOCRIT 28.5 % (39.0-50.0); HEMOGLOBIN 8.5 g/dl (14.0-18.0); IMMATURE GRANULOCYTES 0.9 % (0.0-5.0); MEAN CELL VOLUME 81.4 fL CALC (80.0-100.0); MEAN CORPUSCULAR HGB 24.3 pG CALC (26.0-32.0); MEAN CORPUSCULAR HGB CONC 29.8 g/dL CAL (32.0-36.0); PLATELET COUNT 316 thou/uL (130-400); RED CELL DISTRI WIDTH 20.8 % (11.5-15.5)
[2023-05-30 08:13] LABS: ALBUMIN 4.2 g/dL (3.2-5.0); ALKALINE PHOSPHATASE 157 u/l (38-126); BILIRUBIN, TOTAL 0.4 mg/dL (0.2-1.3); BUN 38 mg/dL (8-23); BUN/CREATININE RATIO 31 (12-20 (CALC)); CARBON DIOXIDE 24 mmol/l (22-30); CHLORIDE 111 mmol/l (95-108); CREATININE 1.2 mg/dL (0.7-1.3); GFR FOR AFR.AMER. > 60 ML/MIN (>=60 (CALC)); GFR OTHER RACES 58 ML/MIN (>=60 (CALC)); POTASSIUM 3.6 mmol/l (3.5-5.1); SGOT/AST 56 u/l (19-48); TOTAL PROTEIN 6.6 g/dL (6.3-8.2)
[2023-05-30 08:15] LABS: ANION GAP 14 (6-22 (CALC)); SODIUM 145 mmol/l (137-146)
[2023-05-30 08:25] LABS: MANUAL DIFFERENTIAL YES
[2023-05-30 08:45] LABS: BAND 2 % (0-8); NUCLEATED RED BLOOD CELL 1 /100WBC (0-1)
[2023-05-30 08:46] LABS: ANISOCYTOSIS MODERATE; OVALOCYTES FEW; POIKILOCYTOSIS MODERATE; POLYCHROMASIA FEW; SCHISTOCYTES FEW; TEAR DROP CELLS FEW
[2023-05-30 10:38] VITALS: BP 172/60
--- NOTE | 2023-05-30 12:04 | NUR ---
PT ON BSC , URINE ON FLOOR PT NOT AWARE WAS NOT CORRECTLY SITTING ON COMMODE PT BM NOTED IN COMMODE. PT CLEANED UP WITH HELP OF TECH. PT DENIES ADDITIONAL NEEDS AT THE TIME ALL SAFETY PRECAUTIONS IN PLACE.
[2023-05-30 12:38] VITALS: BP 146/39
[2023-05-30] MEDS ORDERED: PREDNISONE50 MG PO (14:17)
[2023-05-30] MEDS ORDERED: ZITHROMAX250 MG PO (14:17)
[2023-05-30] MEDS ORDERED: MUCINEX600 MG PO (14:18)
--- NOTE | 2023-05-30 15:09 | NUR ---
Discharge instructions given. Patient verbalizes understanding of same. Discharged in stable condition via Wheelchair to Home with staff. All belongings sent with pt. IV REMOVED TELE REMOVED.
--- NOTE | 2023-05-31 10:09 | NUR ---
Discharge follow up call completed 05.31.23, Pt's daughter states pt had a good night and is having no new issues since discharge. Pt is taking prescribed medication as directed. Daughter will contact PCP to schedule a follow up appointment for patient. Daughter states case finisher was working to get a walker for patient and she doesn't know if someone will contact her or if she needs to contact the patient's dr. Referred question to Case Management. She will check the status of the walker order and contact the family. No other needs or uqestions voiced at this time.
== END 2023-05-30 15:02 | disposition home or self-care (01) ==
LOC: ED 12:02 → ED-I 14:00 → ED 16:02 → ED-I 16:03 → MS2 18:06
PROVIDERS: Nurse Practitioner; Student in an Organized Health Care Education/Training Program; ADMIT Student in an Organized Health Care Education/Training Program; ATTEND Student in an Organized Health Care Education/Training Program
DX: J44.1 Chronic obstructive pulmonary disease with (acute) exacerbation (principal); N17.9 Acute kidney failure, unspecified; E87.5 Hyperkalemia; I13.0 Hypertensive heart and chronic kidney disease with heart failure and stage 1 through stage 4 chronic kidney disease, or unspecified chronic kidney disease; I50.22 Chronic systolic (congestive) heart failure; E11.22 Type 2 diabetes mellitus with diabetic chronic kidney disease; N18.31 Chronic kidney disease, stage 3a; D63.1 Anemia in chronic kidney disease; D50.9 Iron deficiency anemia, unspecified; E86.9 Volume depletion, unspecified; I95.9 Hypotension, unspecified; I25.10 Atherosclerotic heart disease of native coronary artery without angina pectoris; E87.1 Hypo-osmolality and hyponatremia; I25.5 Ischemic cardiomyopathy; E87.20 Acidosis, unspecified; E78.5 Hyperlipidemia, unspecified; E11.51 Type 2 diabetes mellitus with diabetic peripheral angiopathy without gangrene; G20.A1 Parkinson's disease without dyskinesia, without mention of fluctuations; G47.33 Obstructive sleep apnea (adult) (pediatric); E03.9 Hypothyroidism, unspecified; Z95.1 Presence of aortocoronary bypass graft; Z95.0 Presence of cardiac pacemaker; Z79.4 Long term (current) use of insulin; Z87.891 Personal history of nicotine dependence; Z20.822 Contact with and (suspected) exposure to COVID-19; Z89.512 Acquired absence of left leg below knee
CPT/HCPCS: J1650; J1756